=== PATIENT | male | born 1950 | race Caucasian/White ===

== ENCOUNTER 2017-11-15 11:26 | Emergency (ER) | payer MEDICARE, OTHER ==
--- NOTE | 2017-11-15 12:58 | RAD ---
CHEST 2 VIEWS: HISTORY: Cough. COMPARISON: 07/27/13. FINDINGS: Cardiac silhouette is enlarged. Pulmonary vasculature is unremarkable. Mediastinum is midline with aortic calcification. There is no confluent airspace consolidation, pneumothorax, or pleural fluid e vident. IMPRESSION: 1. Cardiomegaly. 2. Atherosclerosis. POS: [facility]
== END 2017-11-15 12:53 | disposition home or self-care (01) ==
LOC: SCSER 11:26
DX: J06.9 Acute upper respiratory infection, unspecified (principal); B34.9 Viral infection, unspecified; E78.5 Hyperlipidemia, unspecified; I25.2 Old myocardial infarction; E11.9 Type 2 diabetes mellitus without complications; I10 Essential (primary) hypertension; Z79.82 Long term (current) use of aspirin; Z79.84 Long term (current) use of oral hypoglycemic drugs; Z79.899 Other long term (current) drug therapy
CPT/HCPCS: 71046

== ENCOUNTER 2018-06-01 09:09 | Outpatient (CLI) | payer MEDICARE, OTHER ==
--- NOTE | 2018-06-01 10:27 | ULT ---
BILATERAL RENAL ULTRASOUND: HISTORY: Renal failure. Diabetes. FINDINGS: The right kidney measures 10.1 cm in length, and the left kidney measures 12.8 cm in length. No foca l mass or hydronephrosis is seen on either side. The urinary bladder is unremarkable, with a pre-voi d volume of 110 mL. IMPRESSION: No evidence of high grade obstruction. POS: [facility]
== END 2018-06-01 09:10 | disposition home or self-care (01) ==
LOC: SCSULT 09:09
PROVIDERS: ATTEND Internal Medicine Nephrology
DX: N18.3 Chronic kidney disease, stage 3 (moderate) (principal)
CPT/HCPCS: 76770

== ENCOUNTER 2018-09-02 13:30 | Emergency (ER) | payer MEDICARE, OTHER ==
[2018-09-02] MEDS ORDERED: Albuterol Sulfate 2.5 mg/0.5 ml Neb ONE ×2 (13:50)
[2018-09-02] MEDS ORDERED: Sodium Chloride For Inhalation 0.9% 3 ML NEB ONE (13:51)
[2018-09-02 14:18] LABS: #Eosinphils 0.2 thou/uL (0.0-0.7); #Lymphocytes 1.4 thou/uL (1.20-3.40); #Monocytes 0.5 thou/uL (0.11-0.59); #Neutrophils 3.1 thou/uL (1.40-6.50); %Basophils 0.6 % (0.0-1.0); %Eosinophils 4.8 % (0.0-10.0); %Lymphocytes 26.2 % (21.0-51.0); %Monocytes 9.2 % (0.0-10.0); %Neutrophils 59.3 % (42.0-75.0); Giant Platelets SLIGHT; Large Platelets SLIGHT; MDiff Complete? YES; Mean Corpuscular HGB CONC 32.5 g/dL (32.0-36.0); Mean Corpuscular Hemoglobin 30.3 pg (27.0-31.0); Mean Corpuscular Volume 93.2 fL (78.0-98.0); Mean Platelet Volume 9.3 fL (7.4-10.4); PLT Morphology Comment Appears Decreased; Platelet Count 86 thou/uL (130-400); RBC Distribution Width 12.8 % (11.5-14.5); Red Blood Cell (RBC) Count 3.32 mill/uL (4.70-6.10); White Blood Cell (WBC) Count 5.3 thou/uL (4.8-10.8)
[2018-09-02 14:21] LABS: ALT (SGPT) 16 U/L (8-55); AST (SGOT) 14 U/L (5-34); Albumin 3.4 g/dL (3.4-4.8); Alkaline Phosphatase 44 U/L (40-150); Anion Gap 14 mmol/L (10-20); BUN (Urea Nitrogen) 25 mg/dL (8.4-25.7); Bilirubin, Total 0.5 mg/dL (0.2-1.2); CK (CPK) 79 U/L (30-200); Calc. Creatinine Clearance 0 mL/min (70-130); Carbon Dioxide 18 mmol/L (23-31); Chloride 103 mmol/L (98-107); Estimated GFR-MDRD 38; Globulin 2.4 g/dL (2.4-3.5); Glucose 281 mg/dL (80-115); Lipase 24 U/L (8-78); Potassium 4.2 mmol/L (3.5-5.1); Protein, Total 5.8 g/dL (5.8-8.1); Sodium 131 mmol/L (136-145)
[2018-09-02 14:24] LABS: CKMB 0.4 ng/mL (0-6.6); Troponin I 0.014 ng/mL (< 0.028)
--- NOTE | 2018-09-02 14:53 | RAD ---
CHEST TWO VIEWS: History: 68-year-old male with history of cough. Comparison: 11-15-17 FINDINGS: Minimal increased markings in the infrahilar regions and lower lung zones. These appear to be slightl y more prominent than on the prior study and probably represent at least some component of underlying chronic change although the possibility of some very minimal acute pneumonitis is a consideration. N o new confluent lobar pneumonia. IMPRESSION: Increased markings in the infrahilar region, slightly more prominent than on prior study, possibly re presenting some mild or early atypical pneumonitis or some subsegmental atelectasis. Absent left arm. Atherosclerosis of the aorta. No new lobar pneumonia. POS: [facility]
[2018-09-02 14:54] LABS: Bilirubin Negative (Negative); Blood, Urine Negative (Negative); Clarity Slightly Cloudy (Clear); Glucose, Urine (Dipstick) 500 mg/dL (Negative); Leukocyte Negative (Negative); Nitrite Negative (Negative); Protein, Urine (Dipstick) Trace mg/dL (Neg-Trace); Urobilinogen 0.2 mg/dL (0.2-1.0); pH, Urine 5.5 (5.0-9.0)
== END 2018-09-02 15:40 | disposition home or self-care (01) ==
LOC: SCSER 13:30
DX: J10.1 Influenza due to other identified influenza virus with other respiratory manifestations (principal); E78.5 Hyperlipidemia, unspecified; I25.2 Old myocardial infarction; E11.9 Type 2 diabetes mellitus without complications; I10 Essential (primary) hypertension; Z79.899 Other long term (current) drug therapy; Z79.82 Long term (current) use of aspirin; Z79.84 Long term (current) use of oral hypoglycemic drugs
CPT/HCPCS: 71046; 80053; 81003; 82553; 83605; 83690; 84484; 85025; 87040; 87804; 93005; 96360; J7611

== ENCOUNTER 2019-01-10 10:31 | Observation (INO) | payer MEDICARE, BC ==
[2019-01-10 10:59] LABS: #Basophils 0.1 thou/uL (0.0-0.2); #Eosinphils 0.2 thou/uL (0.0-0.7); #Lymphocytes 0.8 thou/uL (1.20-3.40); #Monocytes 0.4 thou/uL (0.11-0.59); %Basophils 1.1 % (0.0-1.0); %Eosinophils 3.1 % (0.0-10.0); %Monocytes 6.7 % (0.0-10.0); %Neutrophils 77.1 % (42.0-75.0); Hemoglobin 6.2 g/dL (14.0-18.0); Mean Corpuscular HGB CONC 31.8 g/dL (32.0-36.0); Mean Corpuscular Hemoglobin 30.7 pg (27.0-31.0); Mean Corpuscular Volume 96.4 fL (78.0-98.0); Mean Platelet Volume 10.5 fL (7.4-10.4); Platelet Count 124 thou/uL (130-400); RBC Distribution Width 14.2 % (11.5-14.5); Red Blood Cell (RBC) Count 2.01 mill/uL (4.70-6.10); White Blood Cell (WBC) Count 6.5 thou/uL (4.8-10.8)
[2019-01-10 11:10] LABS: ALT (SGPT) 13 U/L (8-55); AST (SGOT) 12 U/L (5-34); Albumin 3.4 g/dL (3.4-4.8); Alkaline Phosphatase 39 U/L (40-150); Anion Gap 14 mmol/L (10-20); BUN (Urea Nitrogen) 68 mg/dL (8.4-25.7); Bilirubin, Total 0.2 mg/dL (0.2-1.2); Calc. Creatinine Clearance 0 mL/min (70-130); Calcium 8.2 mg/dL (7.8-10.44); Carbon Dioxide 15 mmol/L (23-31); Chloride 113 mmol/L (98-107); Estimated GFR-MDRD 39; Glucose 242 mg/dL (80-115); Lipase 64 U/L (8-78); Potassium 4.6 mmol/L (3.5-5.1); Protein, Total 5.4 g/dL (5.8-8.1); Sodium 137 mmol/L (136-145)
[2019-01-10 11:15] LABS: PTT 24.9 SEC (22.9-36.1); Prothrombin Time 13.3 SEC (12.0-14.7)
[2019-01-10] MEDS ORDERED: Pantoprazole 40 MG VIAL ONE ×4 (11:22→11:55)
[2019-01-10] MEDS ORDERED: Pantoprazole 80 MG, Admixture Fee 1 EACH in Sodium Chloride 0.9% 100 ML IVPB SCH (13:15)
[2019-01-10 13:45] VITALS: BMI 24.8
[2019-01-10] MEDS ORDERED: GoLYTELY 4,000 ml Bottle PO SCH (14:30)
[2019-01-10] MEDS ORDERED: Acetaminophen 325 MG TAB PO PRN (14:41)
[2019-01-10] MEDS ORDERED: Dextrose 5% in Water 1,000 ML IV PRN (15:19)
[2019-01-10] MEDS ORDERED: HumaLOG 300 UNITS/3 ML VIAL SC PRN ×2 (15:19→21:00)
[2019-01-10] MEDS ORDERED: Dextrose 50% Abboject 50 ML SYRINGE SLOW IVP PRN (15:19)
[2019-01-10] MEDS: Sodium Chloride 0.9% 1,000 ML IV SCH (16:16)
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
[2019-01-11 05:39] LABS: Anion Gap 11 mmol/L (10-20); BUN (Urea Nitrogen) 37 mg/dL (8.4-25.7); Calc. Creatinine Clearance 60 mL/min (70-130); Calcium 8.2 mg/dL (7.8-10.44); Carbon Dioxide 21 mmol/L (23-31); Chloride 113 mmol/L (98-107); Estimated GFR-MDRD 53; Glucose 130 mg/dL (80-115); Sodium 141 mmol/L (136-145)
[2019-01-11 05:58] LABS: #Basophils 0.1 thou/uL (0.0-0.2); #Eosinphils 0.2 thou/uL (0.0-0.7); #Lymphocytes 1.1 thou/uL (1.20-3.40); #Monocytes 0.4 thou/uL (0.11-0.59); %Basophils 1.3 % (0.0-1.0); %Eosinophils 3.2 % (0.0-10.0); %Lymphocytes 18.6 % (21.0-51.0); %Monocytes 7.4 % (0.0-10.0); %Neutrophils 69.5 % (42.0-75.0); Hemoglobin 8.9 g/dL (14.0-18.0); Mean Corpuscular Hemoglobin 31.4 pg (27.0-31.0); Mean Corpuscular Volume 92.5 fL (78.0-98.0); Mean Platelet Volume 8.1 fL (7.4-10.4); Platelet Count 133 thou/uL (130-400); RBC Distribution Width 13.7 % (11.5-14.5); Red Blood Cell (RBC) Count 2.83 mill/uL (4.70-6.10); White Blood Cell (WBC) Count 5.7 thou/uL (4.8-10.8)
[2019-01-11] MEDS ORDERED: Lidocaine 1% PF 5 ML VIAL ONE (13:33)
[2019-01-11] MEDS ORDERED: PROPOFOL 200 MG/20 ML VIAL ONE (13:33)
[2019-01-11] MEDS: Sodium Chloride 0.9% 1,000 ML IV SCH (14:16)
[2019-01-11] MEDS ORDERED: Promethazine HCl 25 MG/ML VIAL SLOW IVP PRN (16:59)
[2019-01-11] MEDS ORDERED: Promethazine HCl 25 MG/ML VIAL IM PRN (16:59)
[2019-01-11] MEDS ORDERED: Ondansetron HCl/PF 4 MG/2 ML Vial IVP PRN (16:59)
--- NOTE | 2019-01-11 17:20 | PDOC.PN ---
- Subjective Encounter Start Date: 01/11/19 Encounter Start Time: 17:19 Patient weakness improved. Denies chest pain, shortness of breath or palpitations. He is scheduled for EGD and colonoscopy today - Objective Resuscitation Status - Order Detail: 01/10/19 14:41 Resuscitation Status Routine Resuscitation Status: FULL: Full Resuscitation Discussed with: Patient MAR Reviewed: Yes Vital Signs & Weight: Vital Signs (12 hours) Temp Pulse Resp BP Pulse Ox 01/11/19 11:20 97.5 F L 69 16 127/59 L 95 01/11/19 07:13 99.0 F 72 16 155/70 H 96 Weight Weight 178 lb 6.4 oz I&O: 01/10/19 01/11/19 01/12/19 06:59 06:59 06:59 Intake Total 5708 Output Total 950 Balance 4758 Result Diagrams: 01/11/19 04:54 01/11/19 04:54 Additional Labs: Accuchecks 01/10/19 20:38 POC Glucose 303 H Radiology Reviewed by me: Yes Phys Exam - Physical Examination Constitutional: NAD HEENT: PERRLA, oral pharynx no lesions Neck: supple Respiratory: no wheezing, clear to auscultation bilateral Cardiovascular: RRR, no significant murmur Gastrointestinal: soft, no distention, positive bowel sounds Left upper and lower extremity amputation noted Neurological: non-focal, normal sensation Psychiatric: normal affect, A&O x 3 Skin: no rash, cap refill <2 seconds Dx/Plan (1) Acute blood loss anemia Code(s): D62 - ACUTE POSTHEMORRHAGIC ANEMIA Status: Acute (2) GI bleed Code(s): K92.2 - GASTROINTESTINAL HEMORRHAGE, UNSPECIFIED Status: Acute (3) Acute on chronic renal failure Code(s): N17.9 - ACUTE KIDNEY FAILURE, UNSPECIFIED; N18.9 - CHRONIC KIDNEY DISEASE, UNSPECIFIED Status: Acute (4) Diabetes mellitus type 2 in nonobese Code(s): E11.9 - TYPE 2 DIABETES MELLITUS WITHOUT COMPLICATIONS Status: Acute (5) HTN (hypertension) Code(s): I10 - ESSENTIAL (PRIMARY) HYPERTENSION Status: Acute - Plan cont current plan of care * Hgb stable s/p blood transfusion * Continue PPI and hold NSAIDs * PATRICIA improved * GI plannning upper and lower endoscopy today, await results * Monitor BP and other vital signs * Monitor H&H and transfuse as needed * Patient likely discharged in the next 24 hours if Hgb stable and endoscopies stable
--- NOTE | 2019-01-11 23:14 | OP ---
DATE OF PROCEDURE: 01/11/2019 PROCEDURES PERFORMED: Esophagogastroduodenoscopy with dilation of a duodenal stricture with a balloon and biopsy and control of hemorrhage, and also colonoscopy with biopsy and submucosal injection. PREOPERATIVE DIAGNOSIS: Anemia and gastrointestinal bleed. DESCRIPTION OF PROCEDURE: Informed consent was obtained from the patient. He was sedated with total intravenous anesthesia. The bite block was placed and the endoscope was advanced easily to the second portion of the duodenum and retroflexion was performed in the stomach. 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 I biopsied this. The GE junction was otherwise unremarkable. The stomach had mild erythematous gastritis in the antrum and biopsies were obtained to rule out H pylori. Retroflexed views in the stomach were unremarkable. There was a stricture in the second portion of the duodenum, in the junction between the first and second portions of the duodenum. This was too tight to pass the endoscope through. The stricture was dilated to 12 mm with a balloon dilator, after which the scope could be passed through without difficulty. There was an ulcer in the base of the stricture measuring about 9 to 10 mm. This had a visible red vessel in the base which was cauterized with a 10-B[place]hi Gold Probe with good hemostasis confirmed. The mucosa around the stricture was erythematous with loss of vascularity and biopsies were obtained from this area as well. The patient was turned around. Rectal exam was performed and was normal. The colonoscope was advanced to the terminal ileum without difficulty. The mucosa of the terminal ileum was normal. The ileocecal valve and appendiceal orifice were clearly identified. The preparation quality was good after extensive irrigation with the endoscope. There was a 1.2-cm depressed retracted ulcer in the mid transverse colon. This was biopsied and a tattoo was marked on the distal aspect of this lesion. Malignancy needs to be ruled out from this site. The remainder of the colonic mucosa was unremarkable. Retroflexed views in the rectum were normal. IMPRESSION: 1. 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 2. Mild erythematous antral gastritis, biopsied to rule out Helicobacter pylori. 3. Stricture of the second portion of the duodenum which was dilated to 12 mm with a balloon. The erythematous surrounding mucosa with loss of vascularity was biopsied. 4. A 9-to 10-mm ulcer was present in the base of the stricture with a flat red visible vessel which was cauterized with a 10-[place] Gold Probe with good hemostasis confirmed. 5. Depressed retracted ulceration in the mid transverse colon measuring 1.2 cm, biopsied and tattooed. 6. Otherwise normal ileocolonoscopy. RECOMMENDATIONS: 1. Await histopathology. 2. Proton pump inhibitor. Job ID: [id number]
[2019-01-12] MEDS: Sodium Chloride 0.9% 1,000 ML IV SCH (09:20)
[2019-01-12 10:57] LABS: #Eosinphils 0.1 thou/uL (0.0-0.7); #Lymphocytes 0.8 thou/uL (1.20-3.40); #Monocytes 0.4 thou/uL (0.11-0.59); %Eosinophils 2.7 % (0.0-10.0); %Lymphocytes 14.2 % (21.0-51.0); %Monocytes 7.4 % (0.0-10.0); %Neutrophils 75.7 % (42.0-75.0); Hemoglobin 9.3 g/dL (14.0-18.0); Mean Corpuscular HGB CONC 33.9 g/dL (32.0-36.0); Mean Corpuscular Hemoglobin 31.4 pg (27.0-31.0); Mean Corpuscular Volume 92.6 fL (78.0-98.0); Mean Platelet Volume 8.6 fL (7.4-10.4); Platelet Count 160 thou/uL (130-400); RBC Distribution Width 14.1 % (11.5-14.5); Red Blood Cell (RBC) Count 2.95 mill/uL (4.70-6.10); White Blood Cell (WBC) Count 5.3 thou/uL (4.8-10.8)
[2019-01-12 11:21] LABS: Anion Gap 10 mmol/L (10-20); BUN (Urea Nitrogen) 17 mg/dL (8.4-25.7); Calc. Creatinine Clearance 53 mL/min (70-130); Calcium 8.2 mg/dL (7.8-10.44); Carbon Dioxide 22 mmol/L (23-31); Chloride 109 mmol/L (98-107); Estimated GFR-MDRD 46; Glucose 403 mg/dL (80-115); Sodium 137 mmol/L (136-145)
[2019-01-12 11:47] VITALS: TEMP 97.9
[2019-01-12 12:15] VITALS: BP 157/71
== END 2019-01-12 13:11 | disposition home or self-care (01) ==
LOC: SCSER 10:31 → 2SW 12:56
PROVIDERS: ADMIT Internal Medicine; ATTEND Internal Medicine Gastroenterology
PROC: 0DB98ZX Excision of Duodenum, Via Natural or Artificial Opening Endoscopic, Diagnostic (ICD-10-PCS; principal; 2019-01-11)
PROC: 0DB68ZX Excision of Stomach, Via Natural or Artificial Opening Endoscopic, Diagnostic (ICD-10-PCS; 2019-01-11)
PROC: 0DB58ZX Excision of Esophagus, Via Natural or Artificial Opening Endoscopic, Diagnostic (ICD-10-PCS; 2019-01-11)
PROC: 0D798ZZ Dilation of Duodenum, Via Natural or Artificial Opening Endoscopic (ICD-10-PCS; 2019-01-11)
PROC: 0DBL8ZX Excision of Transverse Colon, Via Natural or Artificial Opening Endoscopic, Diagnostic (ICD-10-PCS; 2019-01-11)
DX: C18.4 Malignant neoplasm of transverse colon (principal); K29.81 Duodenitis with bleeding; K29.51 Unspecified chronic gastritis with bleeding; B96.81 Helicobacter pylori [H. pylori] as the cause of diseases classified elsewhere; K22.70 Barrett's esophagus without dysplasia; D62 Acute posthemorrhagic anemia; I25.10 Atherosclerotic heart disease of native coronary artery without angina pectoris; I12.9 Hypertensive chronic kidney disease with stage 1 through stage 4 chronic kidney disease, or unspecified chronic kidney disease; E11.22 Type 2 diabetes mellitus with diabetic chronic kidney disease; N18.3 Chronic kidney disease, stage 3 (moderate); N17.9 Acute kidney failure, unspecified; E78.5 Hyperlipidemia, unspecified; N40.0 Benign prostatic hyperplasia without lower urinary tract symptoms; K31.5 Obstruction of duodenum; I25.2 Old myocardial infarction; Z95.5 Presence of coronary angioplasty implant and graft; Z98.41 Cataract extraction status, right eye; Z98.42 Cataract extraction status, left eye; Z79.02 Long term (current) use of antithrombotics/antiplatelets; Z79.84 Long term (current) use of oral hypoglycemic drugs; Z79.82 Long term (current) use of aspirin; Z79.899 Other long term (current) drug therapy
CPT/HCPCS: 36430; 43239; 43245; 45380; 80048 ×2; 80053; 82274; 82962 ×3; 83690; 85025 ×3; 85610; 85730; 86850; 86900; 86901; 86920; 88305; 88312; 88313; 93005; 96365; 96366; 96376; 99291; G0378; P9016; 36415; 36416; 96361; C9113; J2001; J2704

== ENCOUNTER 2019-04-17 11:42 | Emergency (ER) | payer MEDICARE, BC ==
--- NOTE | 2019-04-17 12:07 | RAD ---
XR Chest Pa Lat STANDARD History: Cough Comparison: Radiograph from August 2018 Findings: There is interposition of colon between the right hemidiaphragm and the liver. Heart size i s enlarged. Mild atelectasis. No pneumothorax. Absence of the left upper extremity. Impression: Chronic findings. No acute intrathoracic abnormality.
[2019-04-17 12:35] LABS: #Eosinphils 0.1 thou/uL (0.0-0.7); #Lymphocytes 0.8 thou/uL (1.20-3.40); #Monocytes 0.4 thou/uL (0.11-0.59); #Neutrophils 2.6 thou/uL (1.40-6.50); %Basophils 0.4 % (0.0-1.0); %Eosinophils 1.5 % (0.0-10.0); %Lymphocytes 21.1 % (21.0-51.0); %Monocytes 10.2 % (0.0-10.0); %Neutrophils 66.8 % (42.0-75.0); Hemoglobin 9.8 g/dL (14.0-18.0); Mean Corpuscular HGB CONC 32.3 g/dL (32.0-36.0); Mean Corpuscular Hemoglobin 29.2 pg (27.0-31.0); Mean Corpuscular Volume 90.3 fL (78.0-98.0); Mean Platelet Volume 7.6 fL (7.4-10.4); Platelet Count 132 thou/uL (130-400); RBC Distribution Width 14.7 % (11.5-14.5); Red Blood Cell (RBC) Count 3.35 mill/uL (4.70-6.10); White Blood Cell (WBC) Count 3.9 thou/uL (4.8-10.8)
[2019-04-17 12:41] LABS: ALT (SGPT) 14 U/L (8-55); AST (SGOT) 14 U/L (5-34); Albumin 3.7 g/dL (3.4-4.8); Alkaline Phosphatase 57 U/L (40-150); Anion Gap 16 mmol/L (10-20); BUN (Urea Nitrogen) 32 mg/dL (8.4-25.7); Bilirubin, Total 0.2 mg/dL (0.2-1.2); Calc. Creatinine Clearance 0 mL/min (70-130); Calcium 8.5 mg/dL (7.8-10.44); Carbon Dioxide 20 mmol/L (23-31); Chloride 102 mmol/L (98-107); Estimated GFR-MDRD 30; Globulin 2.6 g/dL (2.4-3.5); Glucose 461 mg/dL (80-115); Potassium 3.8 mmol/L (3.5-5.1); Protein, Total 6.3 g/dL (5.8-8.1); Sodium 134 mmol/L (136-145)
[2019-04-17 12:58] LABS: CKMB 0.4 ng/mL (0-6.6)
== END 2019-04-17 13:25 | disposition home or self-care (01) ==
LOC: SCSER 11:42
DX: J20.9 Acute bronchitis, unspecified (principal); R79.89 Other specified abnormal findings of blood chemistry; E11.65 Type 2 diabetes mellitus with hyperglycemia
CPT/HCPCS: 71046; 80053; 82553; 83880; 84484; 85025; 93005

== ENCOUNTER 2019-07-20 10:30 | Outpatient (CLI) | payer MEDICARE, BC ==
[2019-07-20 11:08] LABS: Anion Gap 15 mmol/L (10-20); BUN (Urea Nitrogen) 31 mg/dL (8.4-25.7); Calc. Creatinine Clearance 0 mL/min (70-130); Calcium 8.6 mg/dL (7.8-10.44); Carbon Dioxide 20 mmol/L (23-31); Chloride 106 mmol/L (98-107); Estimated GFR-MDRD 40; Glucose 213 mg/dL (80-115); Potassium 4.5 mmol/L (3.5-5.1); Sodium 136 mmol/L (136-145)
--- NOTE | 2019-07-20 11:25 | RAD ---
PA AND LATERAL CHEST: Date: 07/20/19 HISTORY: Cough. COMPARISON: 04/17/19 study. FINDINGS: Heart size is enlarged. There are atherosclerotic changes of the aorta. The lungs are clear of infilt rative process. IMPRESSION: Cardiomegaly. POS: [facility]
== END 2019-07-20 10:31 | disposition home or self-care (01) ==
LOC: SCSRAD 10:30
PROVIDERS: ATTEND Family Medicine
DX: J22 Unspecified acute lower respiratory infection (principal); N18.3 Chronic kidney disease, stage 3 (moderate); I51.7 Cardiomegaly
CPT/HCPCS: 36415; 71046; 80048

== ENCOUNTER 2019-07-21 17:31 | Inpatient (IN) | payer MEDICARE, BC ==
--- NOTE | 2019-07-21 18:19 | RAD ---
XR Chest Pa Lat STANDARD History: Cough Comparison: Radiograph prior day Findings: New right lower lobe consolidation. Mild pulmonary venous congestion. No pneumothorax. Hear t size is enlarged. Obscuration medial right hemidiaphragm. Impression: New right basilar opacity concerning for infection or aspiration.
[2019-07-21] MEDS ORDERED: cefTRIAXone\\ROCEPHIN 1 GM VIAL ONE (18:26)
[2019-07-21] MEDS ORDERED: Acetaminophen 500 MG TAB ONE (18:26)
[2019-07-21 18:49] LABS: #Eosinphils 0.1 thou/uL (0.0-0.7); #Lymphocytes 0.5 thou/uL (1.20-3.40); #Monocytes 0.5 thou/uL (0.11-0.59); #Neutrophils 5.2 thou/uL (1.40-6.50); %Basophils 0.7 % (0.0-1.0); %Eosinophils 1.6 % (0.0-10.0); %Lymphocytes 7.7 % (21.0-51.0); %Monocytes 8.2 % (0.0-10.0); %Neutrophils 81.9 % (42.0-75.0); Hemoglobin 11.2 g/dL (14.0-18.0); Mean Corpuscular HGB CONC 31.5 g/dL (32.0-36.0); Mean Corpuscular Hemoglobin 29.4 pg (27.0-31.0); Mean Corpuscular Volume 93.3 fL (78.0-98.0); Mean Platelet Volume 10.7 fL (7.4-10.4); Platelet Count 133 thou/uL (130-400); RBC Distribution Width 15.9 % (11.5-14.5); White Blood Cell (WBC) Count 6.3 thou/uL (4.8-10.8)
[2019-07-21] MEDS ORDERED: Azithromycin 500 MG VIAL ONE (19:04)
[2019-07-21 19:09] LABS: ALT (SGPT) 14 U/L (8-55); AST (SGOT) 20 U/L (5-34); Albumin 4.4 g/dL (3.4-4.8); Alkaline Phosphatase 64 U/L (40-110); Anion Gap 19 mmol/L (10-20); BUN (Urea Nitrogen) 31 mg/dL (8.4-25.7); Bilirubin, Total 0.3 mg/dL (0.2-1.2); CK (CPK) 84 U/L (30-200); Calc. Creatinine Clearance 0 mL/min (70-130); Calcium 8.9 mg/dL (7.8-10.44); Carbon Dioxide 15 mmol/L (23-31); Chloride 105 mmol/L (98-107); Estimated GFR-MDRD 39; Glucose 172 mg/dL (80-115); Potassium 4.7 mmol/L (3.5-5.1); Protein, Total 7.4 g/dL (5.8-8.1); Sodium 134 mmol/L (136-145)
[2019-07-21 19:33] LABS: Bilirubin Negative (Negative); Blood, Urine Negative (Negative); Clarity Clear (Clear); Glucose, Urine (Dipstick) >=1000 mg/dL (Negative); Leukocyte Negative (Negative); Nitrite Negative (Negative); Protein, Urine (Dipstick) 100 mg/dL (Neg-Trace); Urobilinogen 0.2 mg/dL (Less than 2)
[2019-07-21 19:37] LABS: Bacteria/HPF None Seen HPF (None Seen); RBC/HPF 0-3 HPF (0-3); Squamous Epithelial 0-3 HPF (0-3); WBC/HPF 0-3 HPF (0-3)
[2019-07-21 21:33] VITALS: BMI 26.1
[2019-07-21] MEDS: Sodium Chloride 0.9% 1,000 ML IV SCH (22:00)
--- NOTE | 2019-07-22 00:18 | PDOC.EVN ---
Event Note - Event Note Event Note: [id number] HP
[2019-07-22 00:26] LABS: Troponin I 0.057 ng/mL (< 0.028)
--- NOTE | 2019-07-22 00:54 | HP ---
CHIEF COMPLAINT: Cough and fever. HISTORY OF PRESENT ILLNESS: Mr. Tovar is a 68-year-old male with past medical history of colon cancer, hyperlipidemia, myocardial infarction, diabetes type 2, hypertension, among others, presents to the emergency room with cough, fever, and shortness of breath for the last week. The patient saw his primary care physician and was given Z-Isma without any improvement. Workup in the emergency room, patient was found to have right base pneumonia. Septic workup done in the ED. The patient is on IV antibiotics. PAST MEDICAL HISTORY: 1. Colon cancer. 2. Myocardial infarction. 3. Hyperlipidemia. 4. Hypertension. 5. Diabetes mellitus, type 2. PAST SURGICAL HISTORY: 1. Colon surgery for cancer. 2. Stent placed. 3. Amputation left upper extremity. SOCIAL HISTORY: Drinks socially. No smoking history. FAMILY HISTORY: Reviewed and noncontributory. HOME MEDICATIONS: Please see home medication reconciliation form for updated medications. ALLERGIES: NO KNOWN ALLERGIES. REVIEW OF SYSTEMS: Review of 14 systems negative except what is mentioned in the history of present illness. PHYSICAL EXAMINATION: GENERAL: The patient is awake, alert, in moderate distress. VITAL SIGNS: Blood pressure 119/59, pulse 94, respiratory rate is 20, pulse oximetry 94%, temperature is 100. HEAD AND NECK: Normocephalic, atraumatic. Neck is supple. CHEST: Few right base crackles. HEART: S1, S2 regular. ABDOMEN: Soft, nontender. Bowel sounds present. NEUROLOGIC: Awake, alert, oriented x3. PSYCH: Normal mood. EXTREMITIES: No clubbing, no cyanosis. Left upper extremity amputation, left lower extremity above-knee amputation. NEUROLOGIC: Awake, alert, oriented x3. PSYCH: Normal mood. LABORATORY DATA: WBC 6.3, hemoglobin 11.2, platelets 133. Sodium 134, potassium 4.7, BUN 31, and creatinine 1.7. ASSESSMENT: 1. Community-acquired pneumonia. 2. Diabetes, type 2. 3. Hypertension. 4. Hyperlipidemia. 5. History of myocardial infarction. PLAN: 1. Admit. 2. Septic workup including cultures in the ED. 3. IV antibiotics. 4. Reconcile home medications. 5. DVT prophylaxis, SCD/low dose heparin if the patient stays more than 24 hours. 6. Expected length of stay two midnights or more. Job ID: [id number]
[2019-07-22] MEDS ORDERED: Dextrose 5% in Water 1,000 ML IV PRN (05:03)
[2019-07-22] MEDS ORDERED: Dextrose 50% Abboject 50 ML SYRINGE SLOW IVP PRN (05:03)
[2019-07-22] MEDS ORDERED: Pregabalin 50 MG CAP ONE (05:08)
[2019-07-22] MEDS: Sodium Chloride 0.9% 1,000 ML IV SCH (05:13)
[2019-07-22] MEDS ORDERED: HumaLOG 300 UNITS/3 ML VIAL ONE (05:15)
[2019-07-22] MEDS: HumaLOG 300 UNITS/3 ML VIAL SC PRN ×3 (05:23→20:36)
[2019-07-22] MEDS ORDERED: Carvedilol 6.25 MG TAB PO SCH (09:00)
[2019-07-22] MEDS: Amlodipine 10 MG TAB PO SCH (09:12)
[2019-07-22] MEDS: Aspirin 81 mg Enteric Coated Tablet PO SCH (09:12)
[2019-07-22] MEDS: Atorvastatin Calcium 40 MG TAB PO SCH (09:17)
[2019-07-22] MEDS: Pregabalin 50 MG CAP PO SCH ×3 (09:18→20:34)
[2019-07-22] MEDS: Clopidogrel Bisulfate 75 MG TAB PO SCH (09:19)
[2019-07-22] MEDS: Lisinopril 5 MG TAB PO SCH (09:23)
[2019-07-22] MEDS ORDERED: cefTRIAXone\\ROCEPHIN 1 GM in Sodium Chloride 0.9% 100 ML IVPB SCH (15:00)
[2019-07-22] MEDS ORDERED: Azithromycin 500 MG in Sodium Chloride 0.9% 250 ML 250 ML IVPB SCH (16:00)
--- NOTE | 2019-07-22 17:48 | PDOC.HOSPP ---
- Subjective Subjective: Feeling much better today. Better energy, breathing better. - Objective Vital Signs & Weight: Vital Signs (12 hours) Temp Pulse Resp BP BP Pulse Ox 07/22/19 17:12 86 20 92 L 07/22/19 11:52 99.2 F 72 20 107/65 98 07/22/19 09:23 79 147/62 H 07/22/19 09:19 147/62 H 07/22/19 09:12 79 147/62 H 07/22/19 08:00 100.3 F H 79 20 147/62 H 95 Weight Weight 187 lb 3.2 oz I&O: 07/21/19 07/22/19 07/23/19 06:59 06:59 06:59 Intake Total 1624 Output Total 525 Balance 1099 Result Diagrams: 07/21/19 18:36 07/21/19 18:36 Additional Labs: Accuchecks 07/22/19 07/22/19 07/22/19 16:10 11:23 04:54 POC Glucose 318 H 215 H 219 H 07/21/19 21:21 POC Glucose 122 H Hospitalist ROS - Medication Medications: Active Medications Generic Name Dose Route Start Last Admin Trade Name Freq PRN Reason Stop Dose Admin Albuterol/Ipratropium 3 ml 07/22/19 16:24 07/22/19 17:12 Duoneb NEB 3 ml [id number] PRN Administration SOB &/or Wheezing Amlodipine Besylate 10 mg 07/22/19 09:00 07/22/19 09:12 Norvasc PO 10 mg DAILY TRISTIN Administration Aspirin 81 mg 07/22/19 09:00 07/22/19 09:12 Ecotrin PO 81 mg DAILY TRISTIN Administration Atorvastatin Calcium 40 mg 07/22/19 09:00 07/22/19 09:17 Lipitor PO 40 mg QAM TRISTIN Administration Carvedilol 25 mg 07/22/19 09:00 07/22/19 09:19 Coreg PO 25 mg BID TRISTIN Administration Clopidogrel Bisulfate 75 mg 07/22/19 09:00 07/22/19 09:19 Plavix PO 75 mg DAILY TRISTIN Administration Azithromycin 500 mg/ Sodium 250 mls @ 250 mls/hr 07/22/19 16:00 07/22/19 17: 04 Chloride IVPB 250 mls 1600 TRISTIN Administration Ceftriaxone Sodium 1 gm/ 100 mls @ 200 mls/hr 07/22/19 15:00 07/22/19 16:07 Sodium Chloride IVPB 100 mls Q24HR TRISTIN Administration Insulin Human Lispro 0 units 07/22/19 05:03 07/22/19 16:16 Humalog SC 5 unit .MILD SLIDING SCALE PRN Administration Mild Correctional Scale Lisinopril 2.5 mg 07/22/19 09:00 07/22/19 09:23 Zestril PO 2.5 mg DAILY TRISTIN Administration Pantoprazole Sodium 40 mg 07/22/19 09:00 07/22/19 09:13 Protonix PO 40 mg DAILY TRISTIN Administration Pregabalin 100 mg 07/22/19 09:00 07/22/19 16:07 Lyrica PO 07/25/19 09:01 100 mg TID TRISTIN Administration - Exam General Appearance: NAD, awake alert Heart: RRR, no murmur, no gallops, no rubs, normal peripheral pulses Respiratory: CTAB, no wheezes, no ronchi, normal chest expansion, no tachypnea, normal percussion Respiratory - other findings: Rales left base. Gastrointestinal: soft, non-tender, non-distended, normal bowel sounds, no palpable masses, no hepatomegaly, no splenomegaly, no bruit Extremities - other findings: Amputated LUE, LLE Musculoskeletal: normal tone Psychiatric: normal affect, normal behavior, A&O x 3 Hosp A/P (1) Pneumonia Code(s): J18.9 - PNEUMONIA, UNSPECIFIED ORGANISM Status: Acute (2) Diabetes mellitus type 2 in nonobese Code(s): E11.9 - TYPE 2 DIABETES MELLITUS WITHOUT COMPLICATIONS Status: Acute (3) HTN (hypertension) Code(s): I10 - ESSENTIAL (PRIMARY) HYPERTENSION Status: Acute - Plan Doing well. Failed initial outpatient treatment. Continue Rocephin and Azithromycin. Anticipate he can discharge tomorrow with oral regimen.
[2019-07-22] MEDS ORDERED: Carvedilol 25 MG TAB PO SCH (20:30)
[2019-07-22] MEDS ORDERED: Zolpidem Tartrate 5 MG TAB PO SCH (21:00)
[2019-07-22] MEDS ORDERED: Tamsulosin HCl 0.4 MG CAP PO SCH (21:00)
[2019-07-22] MEDS ORDERED: Acetaminophen 325 MG TAB PO PRN (22:19)
[2019-07-23] MEDS ORDERED: Ibuprofen 200 MG TAB PO SCH (01:00)
[2019-07-23] MEDS: HumaLOG 300 UNITS/3 ML VIAL SC PRN ×2 (05:32→12:19)
[2019-07-23 07:51] VITALS: BP 137/74; TEMP 98
[2019-07-23] MEDS ORDERED: Carvedilol 25 MG TAB PO SCH (08:00)
[2019-07-23] MEDS: Pregabalin 50 MG CAP PO SCH (09:22)
[2019-07-23] MEDS: Amlodipine 10 MG TAB PO SCH (09:23)
[2019-07-23] MEDS: Lisinopril 5 MG TAB PO SCH (09:23)
[2019-07-23] MEDS: Clopidogrel Bisulfate 75 MG TAB PO SCH (09:23)
[2019-07-23] MEDS: Atorvastatin Calcium 40 MG TAB PO SCH (09:23)
[2019-07-23] MEDS: Aspirin 81 mg Enteric Coated Tablet PO SCH (09:23)
== END 2019-07-23 12:30 | disposition home or self-care (01) | DRG 195 ==
LOC: SCSER 17:31 → T4-B 18:32 → OBSVTOIN 07-22 13:45
PROVIDERS: ADMIT Internal Medicine; ATTEND Internal Medicine
DX: J18.9 Pneumonia, unspecified organism (principal); E78.5 Hyperlipidemia, unspecified; E11.9 Type 2 diabetes mellitus without complications; I10 Essential (primary) hypertension; I25.2 Old myocardial infarction; Z85.038 Personal history of other malignant neoplasm of large intestine
CPT/HCPCS: 36415; 36416; 71046; 80048; 80053; 81003; 81015; 82550; 82553; 83605; 83880; 84484; 85025; 87040; 87804; 93005; 94640; 96365; 96367; J0456; J0696; J3490; J7050; J7620

== ENCOUNTER 2019-12-01 14:02 | Outpatient (CLI) | payer MEDICARE, BC ==
--- NOTE | 2019-12-01 14:40 | RAD ---
2 view chest: [12/01/2019] Comparison:07/21/2019 HISTORY: Cough congestion and fever FINDINGS: There is pulmonary vascular congestion with interstitial prominence in the perihilar region s and lung bases. There is blunting of the costophrenic angles consistent with small volume pleural fluid, right greater than left. No pneumothorax. Mild pulmonary vascular prominence. IMPRESSION: Findings suggesting interstitial edema with small bilateral pleural effusions, right grea ter than left. Follow-up imaging following treatment to document resolution advised.
[2019-12-01 16:36] LABS: #Basophils 0.1 thou/uL (0.0-0.2); #Eosinphils 0.1 thou/uL (0.0-0.7); #Lymphocytes 0.8 thou/uL (1.20-3.40); #Monocytes 0.3 thou/uL (0.11-0.59); #Neutrophils 2.9 thou/uL (1.40-6.50); %Basophils 1.3 % (0.0-1.0); %Eosinophils 3.4 % (0.0-10.0); %Lymphocytes 19.8 % (21.0-51.0); %Monocytes 7.3 % (0.0-10.0); %Neutrophils 68.3 % (42.0-75.0); Hemoglobin 11.9 g/dL (14.0-18.0); Mean Corpuscular HGB CONC 32.9 g/dL (32.0-36.0); Mean Corpuscular Hemoglobin 31.7 pg (27.0-31.0); Mean Corpuscular Volume 96.3 fL (78.0-98.0); Mean Platelet Volume 10.1 fL (7.4-10.4); Platelet Count 144 thou/uL (130-400); RBC Distribution Width 14.7 % (11.5-14.5); Red Blood Cell (RBC) Count 3.74 mill/uL (4.70-6.10); White Blood Cell (WBC) Count 4.3 thou/uL (4.8-10.8)
[2019-12-01 17:09] LABS: ALT (SGPT) 12 U/L (8-55); AST (SGOT) 13 U/L (5-34); Alkaline Phosphatase 69 U/L (40-110); Anion Gap 12 mmol/L (10-20); BUN (Urea Nitrogen) 24 mg/dL (8.4-25.7); Bilirubin, Total 0.6 mg/dL (0.2-1.2); Calc. Creatinine Clearance 0 mL/min (70-130); Calcium 8.8 mg/dL (7.8-10.44); Carbon Dioxide 23 mmol/L (23-31); Chloride 107 mmol/L (98-107); Estimated GFR-MDRD 47; Globulin 2.4 g/dL (2.4-3.5); Glucose 177 mg/dL (80-115); Protein, Total 6.4 g/dL (5.8-8.1); Sodium 138 mmol/L (136-145)
== END 2019-12-01 14:03 | disposition home or self-care (01) ==
LOC: SCSRAD 14:02
PROVIDERS: ATTEND Family Medicine
DX: R79.81 Abnormal blood-gas level (principal)
CPT/HCPCS: 36415; 71046; 80053; 83880; 85025

== ENCOUNTER 2019-12-14 11:09 | Outpatient (CLI) | payer MEDICARE, BC ==
[2019-12-14 12:36] LABS: #Eosinphils 0.2 thou/uL (0.0-0.7); #Lymphocytes 1.4 thou/uL (1.20-3.40); #Monocytes 0.5 thou/uL (0.11-0.59); #Neutrophils 2.9 thou/uL (1.40-6.50); %Basophils 0.8 % (0.0-1.0); %Eosinophils 4.4 % (0.0-10.0); %Lymphocytes 27.8 % (21.0-51.0); %Monocytes 10.1 % (0.0-10.0); %Neutrophils 56.9 % (42.0-75.0); Hemoglobin 12.4 g/dL (14.0-18.0); Mean Corpuscular HGB CONC 32.1 g/dL (32.0-36.0); Mean Corpuscular Hemoglobin 31.2 pg (27.0-31.0); Mean Platelet Volume 9.9 fL (7.4-10.4); Platelet Count 143 thou/uL (130-400); RBC Distribution Width 14.1 % (11.5-14.5); Red Blood Cell (RBC) Count 3.99 mill/uL (4.70-6.10)
[2019-12-14 12:55] LABS: ALT (SGPT) 13 U/L (8-55); AST (SGOT) 15 U/L (5-34); Albumin 4.1 g/dL (3.4-4.8); Alkaline Phosphatase 57 U/L (40-110); Anion Gap 12 mmol/L (10-20); BUN (Urea Nitrogen) 19 mg/dL (8.4-25.7); Bilirubin, Total 0.4 mg/dL (0.2-1.2); Calc. Creatinine Clearance 0 mL/min (70-130); Calcium 8.7 mg/dL (7.8-10.44); Carbon Dioxide 24 mmol/L (23-31); Chloride 105 mmol/L (98-107); Estimated GFR-MDRD 45; Globulin 2.6 g/dL (2.4-3.5); Glucose 140 mg/dL (80-115); Potassium 3.3 mmol/L (3.5-5.1); Protein, Total 6.7 g/dL (5.8-8.1); Sodium 138 mmol/L (136-145)
== END 2019-12-14 11:10 | disposition home or self-care (01) ==
LOC: LABBT 11:09
PROVIDERS: ATTEND Internal Medicine Cardiovascular Disease
DX: Z01.812 Encounter for preprocedural laboratory examination (principal)
CPT/HCPCS: 80053; 85025

== ENCOUNTER 2019-12-21 05:49 | Day surgery (SDC) | payer MEDICARE, BC ==
[2019-12-14 11:35] VITALS: BMI 25.7
[2019-12-21 06:45] LABS: Anion Gap 11 mmol/L (10-20); BUN (Urea Nitrogen) 19 mg/dL (8.4-25.7); Calc. Creatinine Clearance 57 mL/min (70-130); Calcium 8.3 mg/dL (7.8-10.44); Carbon Dioxide 25 mmol/L (23-31); Chloride 106 mmol/L (98-107); Estimated GFR-MDRD 48; Glucose 154 mg/dL (80-115); Potassium 3.3 mmol/L (3.5-5.1); Sodium 139 mmol/L (136-145)
[2019-12-21] MEDS ORDERED: Diazepam 5 MG TAB ONE (06:52)
[2019-12-21] MEDS ORDERED: Fentanyl 100 MCG/2 ML VIAL ONE (07:17)
[2019-12-21] MEDS ORDERED: Midazolam HCl 2 mg/2 ml Vial ONE (07:17)
[2019-12-21] MEDS ORDERED: Iopamidol 370 76% 100 ML VIAL ONE (09:06)
== END 2019-12-21 13:17 | disposition home or self-care (01) ==
LOC: CCL 05:49
PROVIDERS: ATTEND Internal Medicine Cardiovascular Disease
PROC: 4A023N7 Measurement of Cardiac Sampling and Pressure, Left Heart, Percutaneous Approach (ICD-10-PCS; principal; 2019-12-21)
PROC: B2111ZZ Fluoroscopy of Multiple Coronary Arteries using Low Osmolar Contrast (ICD-10-PCS; 2019-12-21)
DX: I25.10 Atherosclerotic heart disease of native coronary artery without angina pectoris (principal); I13.0 Hypertensive heart and chronic kidney disease with heart failure and stage 1 through stage 4 chronic kidney disease, or unspecified chronic kidney disease; E11.22 Type 2 diabetes mellitus with diabetic chronic kidney disease; N18.3 Chronic kidney disease, stage 3 (moderate); I50.22 Chronic systolic (congestive) heart failure; I49.1 Atrial premature depolarization; I25.2 Old myocardial infarction; D50.8 Other iron deficiency anemias; E78.00 Pure hypercholesterolemia, unspecified; E78.5 Hyperlipidemia, unspecified; Z79.02 Long term (current) use of antithrombotics/antiplatelets; Z79.4 Long term (current) use of insulin; Z79.82 Long term (current) use of aspirin; Z79.899 Other long term (current) drug therapy; Z88.8 Allergy status to other drugs, medicaments and biological substances; Z95.5 Presence of coronary angioplasty implant and graft
CPT/HCPCS: 36415; 76942; 80048; 93458; 99152; C1769; J1644; J2250; J3010; Q9967

== ENCOUNTER 2020-04-20 15:00 | Outpatient (CLI) | payer MEDICARE, BC | END 2020-04-20 15:01 | disposition home or self-care (01) | LOC: SLEEPLAB 15:00 | PROVIDERS: ATTEND Family Medicine | DX: G47.33 Obstructive sleep apnea (adult) (pediatric) (principal); E66.9 Obesity, unspecified; R06.83 Snoring; F41.8 Other specified anxiety disorders; I11.0 Hypertensive heart disease with heart failure; I50.9 Heart failure, unspecified; E11.9 Type 2 diabetes mellitus without complications | CPT/HCPCS: 95801 ==

== ENCOUNTER 2021-01-25 08:36 | Outpatient (CLI) | payer MEDICARE, BC ==
[2021-01-25 17:47] LABS: SARS-CoV-2 PCR by NAA Not Detected (NotDetected)
== END 2021-01-25 08:37 | disposition home or self-care (01) ==
LOC: LABBT 08:36
PROVIDERS: ATTEND Internal Medicine Gastroenterology
DX: Z01.812 Encounter for preprocedural laboratory examination (principal); C18.4 Malignant neoplasm of transverse colon; K22.70 Barrett's esophagus without dysplasia; Z20.822 Contact with and (suspected) exposure to COVID-19
CPT/HCPCS: U0003; U0005; 87635

== ENCOUNTER 2021-01-30 05:45 | Day surgery (SDC) | payer MEDICARE, BC ==
[2021-01-30] MEDS ORDERED: PROPOFOL 200 MG/20 ML VIAL ONE (08:30)
[2021-01-30] MEDS ORDERED: ePHEDrine Sulfate 50 MG/10 ML VIAL ONE (08:35)
[2021-01-30] MEDS ORDERED: Lidocaine 1% PF 5 ML VIAL ONE (08:35)
== END 2021-01-30 09:54 | disposition home or self-care (01) ==
LOC: SDC 05:45
PROVIDERS: ATTEND Internal Medicine Gastroenterology
PROC: 0DBN8ZX Excision of Sigmoid Colon, Via Natural or Artificial Opening Endoscopic, Diagnostic (ICD-10-PCS; principal; 2021-01-30)
PROC: 0DB58ZX Excision of Esophagus, Via Natural or Artificial Opening Endoscopic, Diagnostic (ICD-10-PCS; 2021-01-30)
PROC: 0DB78ZX Excision of Stomach, Pylorus, Via Natural or Artificial Opening Endoscopic, Diagnostic (ICD-10-PCS; 2021-01-30)
DX: Z12.11 Encounter for screening for malignant neoplasm of colon (principal); D12.5 Benign neoplasm of sigmoid colon; K29.50 Unspecified chronic gastritis without bleeding; K22.70 Barrett's esophagus without dysplasia; K57.30 Diverticulosis of large intestine without perforation or abscess without bleeding; I25.10 Atherosclerotic heart disease of native coronary artery without angina pectoris; I13.0 Hypertensive heart and chronic kidney disease with heart failure and stage 1 through stage 4 chronic kidney disease, or unspecified chronic kidney disease; E11.22 Type 2 diabetes mellitus with diabetic chronic kidney disease; N18.9 Chronic kidney disease, unspecified; I50.9 Heart failure, unspecified; D63.1 Anemia in chronic kidney disease; E78.00 Pure hypercholesterolemia, unspecified; I25.2 Old myocardial infarction; G47.30 Sleep apnea, unspecified; Z85.038 Personal history of other malignant neoplasm of large intestine; Z87.891 Personal history of nicotine dependence; Z80.0 Family history of malignant neoplasm of digestive organs; Z79.02 Long term (current) use of antithrombotics/antiplatelets; Z79.4 Long term (current) use of insulin; Z79.82 Long term (current) use of aspirin; Z79.899 Other long term (current) drug therapy; Z90.49 Acquired absence of other specified parts of digestive tract; Z95.5 Presence of coronary angioplasty implant and graft; Z95.810 Presence of automatic (implantable) cardiac defibrillator
CPT/HCPCS: 36416; 88305; 93005; 93010; J2704

== ENCOUNTER 2021-09-09 13:57 | Inpatient (IN) | payer MEDICARE, BC ==
[2021-09-09] MEDS ORDERED: Labetalol HCl 100 MG/20 ML VIAL SLOW IVP PRN ×2 (17:35→20:30)
[2021-09-09] MEDS ORDERED: niCARdipine 25 MG in Sodium Chloride 0.9% 250 ML 250 ML IVPB PRN (17:35)
[2021-09-09] MEDS ORDERED: hydrALAZINE 20 MG/ML VIAL SLOW IVP PRN ×2 (17:35→20:30)
[2021-09-09] MEDS ORDERED: Ondansetron PF 4 MG/2 ML Vial IVP PRN (17:35)
[2021-09-09] MEDS ORDERED: Communication Order-Pharmacy FS PRN (17:35)
[2021-09-10 03:44] LABS: Cholesterol 161 mg/dl (< 200 Desired); HDL Cholesterol 32 mg/dL (>60 Neg Risk); Triglycerides 501 mg/dL (Less than 150)
[2021-09-10] MEDS ORDERED: Dextrose 50% Abboject 50 ML SYRINGE SLOW IVP PRN (11:17)
[2021-09-10] MEDS ORDERED: Dextrose 5% in Water 1,000 ML IV PRN (11:17)
[2021-09-10] MEDS: HumaLOG 300 UNITS/3 ML VIAL SC PRN (17:14)
[2021-09-10] MEDS: Pregabalin 50 MG CAP PO SCH (19:54)
[2021-09-10] MEDS: Tamsulosin HCl 0.4 MG CAP PO SCH (19:55)
[2021-09-11 05:29] LABS: #Eosinphils 0.1 thou/uL (0.0-0.7); #Lymphocytes 0.9 thou/uL (1.20-3.40); #Monocytes 0.3 thou/uL (0.11-0.59); #Neutrophils 2.2 thou/uL (1.40-6.50); %Basophils 0.6 % (0.0-1.0); %Eosinophils 3.7 % (0.0-10.0); %Lymphocytes 24.4 % (21.0-51.0); %Monocytes 9.1 % (0.0-10.0); %Neutrophils 62.1 % (42.0-75.0); Hemoglobin 12.7 g/dL (14.0-18.0); Mean Corpuscular HGB CONC 33.4 g/dL (32.0-36.0); Mean Corpuscular Hemoglobin 33.3 pg (27.0-31.0); Mean Corpuscular Volume 99.7 fL (78.0-98.0); Mean Platelet Volume 9.4 fL (7.4-10.4); Platelet Count 81 thou/uL (130-400); RBC Distribution Width 12.4 % (11.5-14.5); Red Blood Cell (RBC) Count 3.82 mill/uL (4.70-6.10); White Blood Cell (WBC) Count 3.5 thou/uL (4.8-10.8)
[2021-09-11 05:50] LABS: Anion Gap 12 mmol/L (10-20); BUN (Urea Nitrogen) 18 mg/dL (8.4-25.7); Calc. Creatinine Clearance 72 mL/min (70-130); Calcium 8.9 mg/dL (7.8-10.44); Carbon Dioxide 24 mmol/L (23-31); Chloride 112 mmol/L (98-107); Glucose 194 mg/dL (83-110); Potassium 3.8 mmol/L (3.5-5.1); Sodium 144 mmol/L (136-145)
[2021-09-11] MEDS: Pregabalin 50 MG CAP PO SCH ×2 (09:03→21:46)
[2021-09-11] MEDS: Atorvastatin Calcium 40 MG TAB PO SCH (09:04)
[2021-09-11] MEDS: Multivit, Therapeutic 1 TAB PO SCH (09:04)
[2021-09-11] MEDS: Ferrous Sulfate 325 MG TAB PO SCH (09:04)
[2021-09-11] MEDS: Amlodipine 5 MG TAB PO SCH (09:04)
[2021-09-11] MEDS: Carvedilol 6.25 MG TAB PO SCH ×2 (09:04→16:06)
[2021-09-11] MEDS: Artificial Tear Sol 15 ML BOT EA EYE PRN ×2 (13:36→16:06)
[2021-09-11] MEDS: HumaLOG 300 UNITS/3 ML VIAL SC PRN (17:47)
[2021-09-11] MEDS: Tamsulosin HCl 0.4 MG CAP PO SCH (21:47)
[2021-09-12] MEDS: Tamsulosin HCl 0.4 MG CAP PO SCH ×2 (05:26→20:04)
[2021-09-12 06:17] LABS: Anion Gap 12 mmol/L (10-20); BUN (Urea Nitrogen) 20 mg/dL (8.4-25.7); Calc. Creatinine Clearance 31 mL/min (70-130); Calcium 8.6 mg/dL (7.8-10.44); Carbon Dioxide 22 mmol/L (23-31); Chloride 108 mmol/L (98-107); Glucose 297 mg/dL (83-110); Magnesium 1.8 mg/dL (1.6-2.6); Sodium 138 mmol/L (136-145)
[2021-09-12] MEDS ORDERED: Fentanyl 100 MCG/2 ML VIAL ONE (06:30)
[2021-09-12] MEDS ORDERED: Midazolam HCl 2 mg/2 ml Vial ONE (06:30)
[2021-09-12] MEDS ORDERED: Lantus 1000 UNITS/10 ML VIAL SC SCH (06:37)
[2021-09-12] MEDS ORDERED: Heparin 5,000 UNITS/ML VIAL ONE (06:38)
[2021-09-12] MEDS ORDERED: Protamine Sulfate 50 MG/5 ML VIAL ONE (06:38)
[2021-09-12] MEDS ORDERED: ceFAZolin 2 GM/DEX 5% 100 ML BAG ONE (06:49)
[2021-09-12] MEDS ORDERED: Ketamine 50 MG/ML (10ML VIAL) ONE (07:04)
[2021-09-12] MEDS ORDERED: Rocuronium Bromide 10 MG/ML (10ML VIAL) ONE (07:21)
[2021-09-12] MEDS ORDERED: PROPOFOL 200 MG/20 ML VIAL ONE (07:21)
[2021-09-12] MEDS ORDERED: Glycopyrrolate 0.2 MG/ML 5 ML SYRINGE ONE (07:21)
[2021-09-12] MEDS ORDERED: Ondansetron PF 4 MG/2 ML Vial ONE (07:21)
[2021-09-12] MEDS ORDERED: Insulin Regular 300 UNITS/3 ML VIAL ONE (08:30)
[2021-09-12] MEDS ORDERED: Lidocaine 1% w/Epinephrine 1:100K 20 ML VIAL ONE (08:42)
[2021-09-12] MEDS ORDERED: Bupivacaine PF 0.5% 30 ML VIAL ONE (08:42)
[2021-09-12] MEDS ORDERED: niCARdipine 25 MG in Sodium Chloride 0.9% 250 ML 250 ML IVPB PRN (10:28)
[2021-09-12] MEDS ORDERED: Phenylephrine 40 MG in Sodium Chloride 0.9% 250 ML 250 ML IVPB PRN (10:28)
[2021-09-12] MEDS ORDERED: traMADol HCl 50 MG TAB PO PRN (10:28)
[2021-09-12] MEDS ORDERED: Ondansetron PF 4 MG/2 ML Vial IVP PRN (10:28)
[2021-09-12] MEDS ORDERED: Acetaminophen 325 MG TAB PO PRN (10:28)
[2021-09-12] MEDS ORDERED: Sodium Chloride 0.9% 1,000 ML IV SCH (10:28)
[2021-09-12] MEDS: Amlodipine 5 MG TAB PO SCH ×2 (10:50→10:53)
[2021-09-12] MEDS: Multivit, Therapeutic 1 TAB PO SCH (10:50)
[2021-09-12] MEDS: Pregabalin 50 MG CAP PO SCH ×2 (10:52→20:03)
[2021-09-12] MEDS: Atorvastatin Calcium 40 MG TAB PO SCH (10:52)
[2021-09-12] MEDS: Ferrous Sulfate 325 MG TAB PO SCH (10:52)
[2021-09-12] MEDS: Carvedilol 6.25 MG TAB PO SCH ×2 (11:21→16:05)
[2021-09-12] MEDS ORDERED: Magnesium 2 GM/50 ML 2 GM in Premix Bag 1 BAG IVPB SCH (14:00)
[2021-09-12 14:36] LABS: ALT (SGPT) 16 U/L (8-55); AST (SGOT) 15 U/L (5-34); Alkaline Phosphatase 51 U/L (40-110); Anion Gap 11 mmol/L (10-20); BUN (Urea Nitrogen) 18 mg/dL (8.4-25.7); Bilirubin, Total 0.3 mg/dL (0.2-1.2); Calc. Creatinine Clearance 30 mL/min (70-130); Calcium 7.8 mg/dL (7.8-10.44); Carbon Dioxide 21 mmol/L (23-31); Chloride 105 mmol/L (98-107); Globulin 2.2 g/dL (2.4-3.5); Glucose 417 mg/dL (83-110); Magnesium 1.7 mg/dL (1.6-2.6); Potassium 4.3 mmol/L (3.5-5.1); Protein, Total 5.2 g/dL (5.8-8.1); Sodium 133 mmol/L (136-145)
[2021-09-12] MEDS: ceFAZolin Sodium/D5W 2 GM in Premix Bag 1 BAG IVPB SCH (14:54)
[2021-09-12] MEDS: HumaLOG 300 UNITS/3 ML VIAL SC PRN ×2 (15:08→20:06)
[2021-09-12] MEDS ORDERED: Lantus 1000 UNITS/10 ML VIAL SC STA (16:21)
[2021-09-12] MEDS: Carvedilol 25 MG TAB PO SCH (17:29)
[2021-09-12] MEDS: Lantus 1000 UNITS/10 ML VIAL SC SCH (20:11)
[2021-09-12] MEDS: hydrALAZINE 20 MG/ML VIAL SLOW IVP PRN (21:19)
[2021-09-13] MEDS: ceFAZolin Sodium/D5W 2 GM in Premix Bag 1 BAG IVPB SCH ×2 (00:07→08:39)
[2021-09-13] MEDS: hydrALAZINE 20 MG/ML VIAL SLOW IVP PRN (03:41)
[2021-09-13] MEDS: Tamsulosin HCl 0.4 MG CAP PO SCH (04:42)
[2021-09-13] MEDS: HumaLOG 300 UNITS/3 ML VIAL SC PRN ×2 (04:48→11:20)
[2021-09-13 04:56] VITALS: BMI 294535.9
[2021-09-13] MEDS ORDERED: Furosemide 40 MG/4 ML VIAL SLOW IVP SCH (07:30)
[2021-09-13] MEDS ORDERED: Potassium Chloride 20 MEQ TAB PO SCH ×2 (07:30→08:00)
[2021-09-13] MEDS ORDERED: Lantus 1000 UNITS/10 ML VIAL SC STA (07:30)
[2021-09-13] MEDS: Multivit, Therapeutic 1 TAB PO SCH (08:40)
[2021-09-13] MEDS: Atorvastatin Calcium 40 MG TAB PO SCH (08:40)
[2021-09-13] MEDS: Pregabalin 50 MG CAP PO SCH (08:41)
[2021-09-13] MEDS: Carvedilol 25 MG TAB PO SCH (08:42)
[2021-09-13] MEDS: Ferrous Sulfate 325 MG TAB PO SCH (08:46)
[2021-09-13] MEDS ORDERED: Sacubitril 49 MG/Valsartan 51 MG TABLET PO SCH (09:00)
[2021-09-13] MEDS ORDERED: Clopidogrel Bisulfate 75 MG TAB PO SCH (09:00)
[2021-09-13] MEDS ORDERED: Aspirin Chewable 81 MG TAB PO SCH (09:00)
[2021-09-13] MEDS: Lantus 1000 UNITS/10 ML VIAL SC SCH (09:14)
[2021-09-13 13:01] VITALS: TEMP 98.4
[2021-09-13] MEDS ORDERED: Lantus 1000 UNITS/10 ML VIAL SC SCH (14:57)
[2021-09-13 15:41] VITALS: BP 130/81
[2021-09-14] MEDS ORDERED: Torsemide 20 MG TAB PO SCH (09:00)
== END 2021-09-13 15:28 | disposition home health service (06) | DRG 37 ==
LOC: ERS 13:57 → CCU 15:05 → NEURO 09-10 22:03 → CCU 09-12 06:19
PROVIDERS: ADMIT Internal Medicine; ATTEND Internal Medicine
PROC: 03CL0ZZ Extirpation of Matter from Left Internal Carotid Artery, Open Approach (ICD-10-PCS; principal; 2021-09-12)
PROC: 03UL0KZ Supplement Left Internal Carotid Artery with Nonautologous Tissue Substitute, Open Approach (ICD-10-PCS; 2021-09-12)
DX: I63.00 Cerebral infarction due to thrombosis of unspecified precerebral artery (principal); I60.9 Nontraumatic subarachnoid hemorrhage, unspecified; I51.81 Takotsubo syndrome; I13.0 Hypertensive heart and chronic kidney disease with heart failure and stage 1 through stage 4 chronic kidney disease, or unspecified chronic kidney disease; I50.22 Chronic systolic (congestive) heart failure; I47.2 Ventricular tachycardia; I65.22 Occlusion and stenosis of left carotid artery; Z20.822 Contact with and (suspected) exposure to COVID-19; R47.81 Slurred speech; E78.5 Hyperlipidemia, unspecified; E11.65 Type 2 diabetes mellitus with hyperglycemia; E11.51 Type 2 diabetes mellitus with diabetic peripheral angiopathy without gangrene; E11.22 Type 2 diabetes mellitus with diabetic chronic kidney disease; N18.30 Chronic kidney disease, stage 3 unspecified; D63.1 Anemia in chronic kidney disease; Z79.01 Long term (current) use of anticoagulants; Z79.82 Long term (current) use of aspirin; Z79.4 Long term (current) use of insulin; Z79.899 Other long term (current) drug therapy; I25.2 Old myocardial infarction; Z89.512 Acquired absence of left leg below knee; Z92.82 Status post administration of tPA (rtPA) in a different facility within the last 24 hours prior to admission to current facility; Z82.49 Family history of ischemic heart disease and other diseases of the circulatory system; Z86.73 Personal history of transient ischemic attack (TIA), and cerebral infarction without residual deficits; Z85.038 Personal history of other malignant neoplasm of large intestine; Z95.5 Presence of coronary angioplasty implant and graft; Z89.212 Acquired absence of left upper limb below elbow
CPT/HCPCS: 36415; 36416; 70450; 70496; 70498; 70551; 80048; 80053; 80061; 81003; 82550; 82553; 83735; 84484; 85025; 85610; 85730; 93005; 93010; 93306; 95712; 95819; 95957; C1768; J0360; J1642; J1644; J1815; J1940; J2250; J2405; J2704; J2720; J3010; J3475; S0020; U0002

== ENCOUNTER 2023-01-27 12:00 | Inpatient (IN) | payer MEDICARE, BC ==
[2023-01-27 13:02] LABS: INR-International Normal Ratio 0.9; Prothrombin Time 10.2 sec (9.5-12.1)
[2023-01-27 13:04] LABS: Hemoglobin 12.3 g/dL (13.5-17.5); Mean Corpuscular HGB CONC 32.9 g/dL (32.0-36.0); Mean Corpuscular Hemoglobin 30.6 pg (27.0-33.0); Platelet Count 122 10x3/uL (150-450); RBC Distribution Width 13.2 % (11.5-14.5); Red Blood Cell (RBC) Count 4.02 10x6/uL (4.32-5.72)
[2023-01-27 13:07] LABS: ALT (SGPT) 15 U/L (8-55); AST (SGOT) 16 U/L (5-34); Albumin 4.2 g/dL (3.4-4.8); Alkaline Phosphatase 51 U/L (40-110); Anion Gap 13 mmol/L (10-20); BUN (Urea Nitrogen) 26 mg/dL (8.4-25.7); Bilirubin, Total 0.5 mg/dL (0.2-1.2); Calc. Creatinine Clearance 0 mL/min (70-130); Calcium 8.3 mg/dL (7.8-10.44); Carbon Dioxide 23 mmol/L (23-31); Chloride 98 mmol/L (98-107); Estimated GFR 55; Glucose 119 mg/dL (83-110); Potassium 4.8 mmol/L (3.5-5.1); Protein, Total 6.2 g/dL (5.8-8.1); Sodium 129 mmol/L (136-145)
[2023-02-02 12:24] VITALS: BMI 26.7
[2023-02-03] MEDS ORDERED: Heparin 10,000 UNITS/ 10 ML VIAL ONE ×2 (06:44→06:54)
[2023-02-03] MEDS ORDERED: Protamine Sulfate 50 MG/5 ML VIAL ONE (06:44)
[2023-02-03] MEDS ORDERED: CEFAZOLIN 1 GM VIAL ONE (06:44)
[2023-02-03] MEDS ORDERED: fentaNYL 50 mcg/mL 1 mL Vial ONE (06:52)
[2023-02-03] MEDS ORDERED: Norepinephrine 4 MG/4 ML VIAL ONE (06:53)
[2023-02-03] MEDS ORDERED: Phenylephrine 10 MG/ML VIAL ONE (06:53)
[2023-02-03] MEDS ORDERED: PROPOFOL 200 MG/20 ML VIAL ONE (07:36)
[2023-02-03] MEDS ORDERED: Dexamethasone 20 MG/5 ML VIAL ONE (07:36)
[2023-02-03] MEDS ORDERED: Lidocaine 1% PF 5 ML VIAL ONE (07:36)
[2023-02-03] MEDS ORDERED: Ondansetron PF 4 MG/2 ML Vial ONE (07:36)
[2023-02-03] MEDS ORDERED: Rocuronium Bromide 10 MG/ML (10ML VIAL) ONE (07:36)
== END 2023-02-03 14:50 | disposition home or self-care (01) | DRG 274 ==
LOC: SURG A 02-03 05:56
PROVIDERS: ADMIT Internal Medicine Cardiovascular Disease; ATTEND Internal Medicine Cardiovascular Disease
PROC: 02L73DK Occlusion of Left Atrial Appendage with Intraluminal Device, Percutaneous Approach (ICD-10-PCS; principal; 2023-02-03)
PROC: B24BZZ4 Ultrasonography of Heart with Aorta, Transesophageal (ICD-10-PCS; 2023-02-03)
DX: I48.0 Paroxysmal atrial fibrillation (principal); Z00.6 Encounter for examination for normal comparison and control in clinical research program; Z95.5 Presence of coronary angioplasty implant and graft; Z90.49 Acquired absence of other specified parts of digestive tract; Z98.42 Cataract extraction status, left eye; Z98.41 Cataract extraction status, right eye; Z89.612 Acquired absence of left leg above knee; Z89.202 Acquired absence of left upper limb, unspecified level; Z79.82 Long term (current) use of aspirin; Z79.4 Long term (current) use of insulin; Z79.02 Long term (current) use of antithrombotics/antiplatelets
CPT/HCPCS: 33340; 80053; 85027; 85610; 86850; 86900; 86901; 93306; 93312; C1759; C1760; C1769; C1894; J0690; J1100; J1644; J2370; J2405; J2704; J2720; J3010

== ENCOUNTER 2023-11-24 14:09 | Emergency (ER) | payer MEDICARE ==
[2023-11-24 16:10] LABS: #Eosinphils 0.1 thou/uL (0.0-0.7); #Monocytes 0.5 thou/uL (0.11-0.59); #Neutrophils 5.6 thou/uL (1.40-6.50); %Basophils 0.1 % (0.0-1.0); %Eosinophils 1.3 % (0.0-10.0); %Lymphocytes 9.8 % (21.0-51.0); %Monocytes 6.5 % (0.0-10.0); %Neutrophils 81.6 % (42.0-75.0); Hematocrit 33.7 % (42.0-52.0); Hemoglobin 11.4 g/dL (14.0-18.0); Mean Corpuscular HGB CONC 33.8 g/dL (32.0-36.0); Mean Corpuscular Hemoglobin 31.8 pg (27.0-31.0); Mean Corpuscular Volume 93.9 fl (78.0-98.0); Mean Platelet Volume 11.1 fL (7.4-10.4); Platelet Count 112 10x3/uL (130-400); RBC Distribution Width 13.1 % (11.5-14.5); Red Blood Cell (RBC) Count 3.59 mill/uL (4.70-6.10); White Blood Cell (WBC) Count 6.9 10x3/uL (4.8-10.8)
[2023-11-24 16:30] LABS: ALT (SGPT) 10 U/L (8-55); AST (SGOT) 11 U/L (5-34); Albumin 3.7 g/dL (3.4-4.8); Alkaline Phosphatase 55 U/L (40-110); Anion Gap 12 mmol/L (10-20); BUN (Urea Nitrogen) 27 mg/dL (8.4-25.7); Bilirubin, Total 0.9 mg/dL (0.2-1.2); Calc. Creatinine Clearance 0 mL/min (70-130); Calcium 8.3 mg/dL (7.8-10.44); Carbon Dioxide 20 mmol/L (23-31); Chloride 93 mmol/L (98-107); Estimated GFR 49; Globulin 2.3 g/dL (2.4-3.5); Glucose 179 mg/dL (83-110); Potassium 4.8 mmol/L (3.5-5.1); Sodium 120 mmol/L (136-145)
== END 2023-11-24 16:57 | disposition home or self-care (01) ==
LOC: ERS 14:09
DX: E87.1 Hypo-osmolality and hyponatremia (principal); I13.0 Hypertensive heart and chronic kidney disease with heart failure and stage 1 through stage 4 chronic kidney disease, or unspecified chronic kidney disease; E11.22 Type 2 diabetes mellitus with diabetic chronic kidney disease; N18.9 Chronic kidney disease, unspecified; I50.9 Heart failure, unspecified; R63.5 Abnormal weight gain; E78.5 Hyperlipidemia, unspecified; I25.2 Old myocardial infarction; G47.33 Obstructive sleep apnea (adult) (pediatric); E87.70 Fluid overload, unspecified; C18.9 Malignant neoplasm of colon, unspecified; F17.220 Nicotine dependence, chewing tobacco, uncomplicated; Z55.6 Problems related to health literacy; Z79.4 Long term (current) use of insulin; Z79.899 Other long term (current) drug therapy
CPT/HCPCS: 36415; 71046; 80053; 83880; 85025; 93005

== ENCOUNTER 2023-11-30 16:19 | Inpatient (IN) | payer MEDICARE ==
[2023-11-30] MEDS ORDERED: Metoprolol Tartrate 5 MG (5 mL) VIAL ONE (16:33)
[2023-11-30] MEDS ORDERED: Etomidate 40 MG (20 mL) VIAL ONE (16:40)
[2023-11-30 16:43] LABS: #Eosinphils 0.1 thou/uL (0.0-0.7); #Monocytes 0.6 thou/uL (0.11-0.59); #Neutrophils 5.5 thou/uL (1.40-6.50); %Basophils 0.1 % (0.0-1.0); %Eosinophils 0.9 % (0.0-10.0); %Monocytes 9.3 % (0.0-10.0); %Neutrophils 80.1 % (42.0-75.0); Hemoglobin 10.9 g/dL (14.0-18.0); Mean Corpuscular HGB CONC 34.1 g/dL (32.0-36.0); Mean Corpuscular Hemoglobin 32.2 pg (27.0-31.0); Mean Corpuscular Volume 94.7 fl (78.0-98.0); Mean Platelet Volume 10.8 fL (7.4-10.4); Platelet Count 151 10x3/uL (130-400); RBC Distribution Width 13.5 % (11.5-14.5); Red Blood Cell (RBC) Count 3.38 mill/uL (4.70-6.10); White Blood Cell (WBC) Count 6.8 10x3/uL (4.8-10.8)
[2023-11-30 17:06] LABS: ALT (SGPT) 20 U/L (8-55); AST (SGOT) 18 U/L (5-34); Albumin 3.3 g/dL (3.4-4.8); Alkaline Phosphatase 67 U/L (40-110); Anion Gap 17 mmol/L (10-20); BUN (Urea Nitrogen) 74 mg/dL (8.4-25.7); Bilirubin, Total 0.5 mg/dL (0.2-1.2); Calc. Creatinine Clearance 0 mL/min (70-130); Calcium 8.5 mg/dL (7.8-10.44); Carbon Dioxide 15 mmol/L (23-31); Chloride 96 mmol/L (98-107); Estimated GFR 12; Globulin 2.8 g/dL (2.4-3.5); Glucose 203 mg/dL (83-110); Potassium 5.9 mmol/L (3.5-5.1); Protein, Total 6.1 g/dL (5.8-8.1); Sodium 122 mmol/L (136-145)
[2023-11-30 17:10] LABS: Troponin I 0.041 ng/mL (< 0.028)
[2023-11-30 17:26] LABS: PTT 34.4 sec (22.9-36.1); Prothrombin Time 13.6 sec (12.0-14.7)
[2023-11-30 17:27] LABS: Magnesium 1.9 mg/dL (1.6-2.6)
[2023-11-30] MEDS ORDERED: CALCIUM GLUC 1 GM (50 ML) BAG ONE (18:19)
[2023-11-30] MEDS ORDERED: Acetaminophen 325 MG TAB PO PRN (19:23)
[2023-11-30] MEDS ORDERED: Acetaminophen 650 MG Suppository PR PRN (19:23)
[2023-11-30] MEDS ORDERED: Ondansetron PF 4 MG/2 ML Vial IVP PRN (19:23)
[2023-11-30] MEDS ORDERED: Senokot S 8.6-50 MG TAB PO PRN (19:23)
[2023-11-30] MEDS ORDERED: Bisacodyl 5 MG TAB PO PRN (19:23)
[2023-11-30] MEDS ORDERED: Ondansetron ODT 4 MG TAB PO PRN (19:23)
[2023-11-30] MEDS ORDERED: Insulin Regular 300 UNITS/3 ML VIAL ONE (19:42)
[2023-11-30] MEDS ORDERED: Sodium Chloride 0.9% 1,000 ML IV SCH (19:45)
[2023-11-30] MEDS ORDERED: Ipratropium/Albuterol 3 ML NEB NEB PRN (19:49)
[2023-11-30] MEDS ORDERED: Sodium Polystyrene Sulfonate 15 GM (60 mL) BOT ONE (19:57)
[2023-11-30] MEDS ORDERED: Lactulose 20 GM (30 mL) UDCUP ONE ×2 (19:57→20:28)
[2023-11-30 20:59] LABS: Hemoglobin A1c 6.6 % (4.0-6.0)
[2023-11-30 21:09] LABS: Anion Gap 17 mmol/L (10-20); BUN (Urea Nitrogen) 66 mg/dL (8.4-25.7); Calc. Creatinine Clearance 0 mL/min (70-130); Calcium 7.9 mg/dL (7.8-10.44); Carbon Dioxide 12 mmol/L (23-31); Chloride 92 mmol/L (98-107); Estimated GFR 12; Potassium 4.8 mmol/L (3.5-5.1)
[2023-11-30 21:14] LABS: Troponin I 0.042 ng/mL (< 0.028)
[2023-11-30 21:23] LABS: Critical Call Chemistry NUR.MD20 @2122; Sodium 116 mmol/L (136-145)
[2023-11-30] MEDS ORDERED: Furosemide 40 MG (4 mL) VIAL SLOW IVP SCH (21:30)
[2023-11-30] MEDS ORDERED: Glucagon 1 MG/ML KIT IM PRN (22:59)
[2023-11-30] MEDS ORDERED: Dextrose 50% Abboject 50 ML SYRINGE SLOW IVP PRN (22:59)
[2023-11-30] MEDS ORDERED: Dextrose 5% in Water 1,000 ML IV PRN (22:59)
[2023-11-30] MEDS: Heparin 5,000 UNITS/ML VIAL SC SCH (23:51)
[2023-11-30] MEDS: Sodium Chloride 0.9% 1,000 ML IV SCH (23:51)
[2023-11-30] MEDS: Famotidine 20 MG TAB PO SCH (23:51)
[2023-12-01 02:42] LABS: #Eosinphils 0.1 thou/uL (0.0-0.7); #Monocytes 0.6 thou/uL (0.11-0.59); #Neutrophils 3.9 thou/uL (1.40-6.50); %Basophils 0.2 % (0.0-1.0); %Eosinophils 1.9 % (0.0-10.0); %Lymphocytes 13.1 % (21.0-51.0); %Neutrophils 72.1 % (42.0-75.0); Hematocrit 29.2 % (42.0-52.0); Hemoglobin 9.8 g/dL (14.0-18.0); Mean Corpuscular HGB CONC 33.6 g/dL (32.0-36.0); Mean Corpuscular Hemoglobin 32.1 pg (27.0-31.0); Mean Corpuscular Volume 95.7 fl (78.0-98.0); Mean Platelet Volume 10.4 fL (7.4-10.4); Platelet Count 149 10x3/uL (130-400); RBC Distribution Width 13.7 % (11.5-14.5); Red Blood Cell (RBC) Count 3.05 mill/uL (4.70-6.10); White Blood Cell (WBC) Count 5.3 10x3/uL (4.8-10.8)
[2023-12-01 02:51] LABS: Base Excess -12.1 mEq/L (-2.0 to +3.0); Calcium, Ionized (venous) 1.08 mmol/L (1.16-1.32); Chloride (VBG) 100 mmol/L (98-106); Hematocrit-VBG 31 % (42.0-52.0); Hemoglobin (Hb) 10.7 g/dL (12.6-17.4); Potassium (VBG) 4.07 mmol/L (3.70-5.30); Sodium 125 mmol/L (133-146); pH (venous) 7.259 (7.32-7.43)
[2023-12-01 03:04] LABS: Lactic Acid 0.5 mmol/L (0.5-2.2)
[2023-12-01 03:10] LABS: ALT (SGPT) 19 U/L (8-55); AST (SGOT) 17 U/L (5-34); Albumin 3.1 g/dL (3.4-4.8); Alkaline Phosphatase 61 U/L (40-110); Anion Gap 15 mmol/L (10-20); BUN (Urea Nitrogen) 70 mg/dL (8.4-25.7); Bilirubin, Total 0.4 mg/dL (0.2-1.2); Calc. Creatinine Clearance 0 mL/min (70-130); Carbon Dioxide 14 mmol/L (23-31); Chloride 102 mmol/L (98-107); Estimated GFR 12; Globulin 2.3 g/dL (2.4-3.5); Glucose 133 mg/dL (83-110); Potassium 4.1 mmol/L (3.5-5.1); Protein, Total 5.4 g/dL (5.8-8.1); Sodium 127 mmol/L (136-145)
[2023-12-01 03:20] LABS: Magnesium 1.8 mg/dL (1.6-2.6)
[2023-12-01] MEDS: Sodium Bicarbonate 100 MEQ in Sterile Water 1,000 ML IV SCH (03:28)
[2023-12-01] MEDS: Sodium Bicarb 50 mEq/50 ML VIAL IVP SCH (03:30)
[2023-12-01 04:21] VITALS: BMI 29.4
[2023-12-01] MEDS ORDERED: Sodium Bicarbonate 100 MEQ in Sterile Water 1,000 ML IV SCH ×2 (07:58→09:41)
[2023-12-01 09:12] LABS: Anion Gap 17 mmol/L (10-20); BUN (Urea Nitrogen) 69 mg/dL (8.4-25.7); Calc. Creatinine Clearance 19 mL/min (70-130); Calcium 8.1 mg/dL (7.8-10.44); Carbon Dioxide 17 mmol/L (23-31); Chloride 100 mmol/L (98-107); Estimated GFR 12; Glucose 80 mg/dL (83-110); Potassium 3.6 mmol/L (3.5-5.1); Sodium 130 mmol/L (136-145)
[2023-12-01] MEDS: Potassium Chloride 20 MEQ TAB PO SCH (12:24)
[2023-12-01 14:02] LABS: Bacteria/HPF None Seen HPF (None Seen); Bilirubin Negative (Negative); Blood, Urine Negative (Negative); CAUTI Indications for Culture Dysuria,urgency,freq; Clarity Clear (Clear); Glucose, Urine (Dipstick) 150 mg/dL (Negative); Ketone, Urine Negative (Negative); Leukocyte Negative Leu/uL (Negative); Nitrite Negative (Negative); Protein, Urine (Dipstick) Negative (Neg-Trace); RBC/HPF 0-3 HPF (0-3); Specific Gravity, Urine 1.011 (1.002-1.036); Squamous Epithelial None Seen HPF (0-3); Urobilinogen Normal mg/dL (Less than 2); WBC/HPF 0-3 HPF (0-3)
[2023-12-01 14:04] LABS: Urine Culture Reflex No No
[2023-12-01] MEDS: HumaLOG 300 UNITS/3 ML VIAL SC PRN (17:26)
[2023-12-01] MEDS: Albumin 25% 25 GM (100 mL) BOT IVPB SCH (23:53)
[2023-12-02 05:04] LABS: Anion Gap 15 mmol/L (10-20); BUN (Urea Nitrogen) 72 mg/dL (8.4-25.7); Calc. Creatinine Clearance 19 mL/min (70-130); Calcium 8.1 mg/dL (7.8-10.44); Carbon Dioxide 19 mmol/L (23-31); Chloride 103 mmol/L (98-107); Estimated GFR 12; Glucose 72 mg/dL (83-110); Potassium 3.6 mmol/L (3.5-5.1); Sodium 133 mmol/L (136-145)
[2023-12-02 05:23] LABS: #Eosinphils 0.1 thou/uL (0.0-0.7); #Monocytes 0.5 thou/uL (0.11-0.59); #Neutrophils 2.6 thou/uL (1.40-6.50); %Basophils 0.5 % (0.0-1.0); %Eosinophils 2.7 % (0.0-10.0); %Lymphocytes 19.4 % (21.0-51.0); %Monocytes 13.2 % (0.0-10.0); %Neutrophils 63.7 % (42.0-75.0); Hematocrit 26.6 % (42.0-52.0); Hemoglobin 8.9 g/dL (14.0-18.0); Mean Corpuscular HGB CONC 33.5 g/dL (32.0-36.0); Mean Corpuscular Hemoglobin 31.9 pg (27.0-31.0); Mean Corpuscular Volume 95.3 fl (78.0-98.0); Mean Platelet Volume 11.2 fL (7.4-10.4); Platelet Count 156 10x3/uL (130-400); RBC Distribution Width 13.8 % (11.5-14.5); Red Blood Cell (RBC) Count 2.79 mill/uL (4.70-6.10)
[2023-12-02] MEDS: Digoxin 0.5 MG/2 ML AMP SLOW IVP SCH ×2 (06:33→09:13)
[2023-12-02] MEDS: Sodium Bicarb 50 MEQ/50 ML Abboject 8.4% SYRINGE IVP SCH (07:24)
[2023-12-02] MEDS: dilTIAZem 125 MG, Admixture Fee 1 EACH in Sodium Chloride 0.9% 100 ML IVPB SCH (07:46)
[2023-12-02] MEDS: Amiodarone 450 MG in Dextrose 5% in Water 250 ML IVPB SCH (10:08)
[2023-12-02 16:14] LABS: Actual Bicarbonate (HCO3v) 13.8 mEq/L (22-28)
[2023-12-02] MEDS: HumaLOG 300 UNITS/3 ML VIAL SC PRN (20:43)
[2023-12-03 04:52] LABS: #Eosinphils 0.2 thou/uL (0.0-0.7); #Monocytes 0.6 thou/uL (0.11-0.59); #Neutrophils 4.2 thou/uL (1.40-6.50); %Basophils 0.5 % (0.0-1.0); %Eosinophils 2.8 % (0.0-10.0); %Lymphocytes 11.7 % (21.0-51.0); %Monocytes 10.8 % (0.0-10.0); %Neutrophils 73.5 % (42.0-75.0); Hemoglobin 9.3 g/dL (14.0-18.0); Mean Corpuscular HGB CONC 33.2 g/dL (32.0-36.0); Mean Corpuscular Hemoglobin 31.7 pg (27.0-31.0); Mean Corpuscular Volume 95.6 fl (78.0-98.0); Mean Platelet Volume 10.5 fL (7.4-10.4); Platelet Count 196 10x3/uL (130-400); RBC Distribution Width 13.8 % (11.5-14.5); Red Blood Cell (RBC) Count 2.93 mill/uL (4.70-6.10); White Blood Cell (WBC) Count 5.7 10x3/uL (4.8-10.8)
[2023-12-03 05:45] LABS: Anion Gap 15 mmol/L (10-20); BUN (Urea Nitrogen) 77 mg/dL (8.4-25.7); Calc. Creatinine Clearance 20 mL/min (70-130); Calcium 8.3 mg/dL (7.8-10.44); Carbon Dioxide 20 mmol/L (23-31); Chloride 102 mmol/L (98-107); Estimated GFR 13; Glucose 128 mg/dL (83-110); Magnesium 1.9 mg/dL (1.6-2.6); Potassium 3.9 mmol/L (3.5-5.1); Sodium 133 mmol/L (136-145)
[2023-12-03] MEDS: Furosemide 40 MG (4 mL) VIAL SLOW IVP SCH (09:27)
[2023-12-03] MEDS ORDERED: Heparin 10,000 UNITS/ 10 ML VIAL ONE (11:49)
[2023-12-03] MEDS: Albumin 25% 25 GM (100 mL) BOT IVPB SCH (12:11)
[2023-12-03] MEDS: Carvedilol 25 MG TAB PO SCH ×2 (14:42→21:31)
[2023-12-03] MEDS: Pregabalin 50 MG CAP PO SCH ×2 (16:23→21:30)
[2023-12-03] MEDS: Amiodarone 200 MG TAB PO SCH (21:31)
[2023-12-04 04:25] LABS: #Eosinphils 0.2 thou/uL (0.0-0.7); #Monocytes 0.4 thou/uL (0.11-0.59); #Neutrophils 2.9 thou/uL (1.40-6.50); %Basophils 0.5 % (0.0-1.0); %Eosinophils 3.7 % (0.0-10.0); %Monocytes 10.8 % (0.0-10.0); Hematocrit 26.1 % (42.0-52.0); Hemoglobin 8.6 g/dL (14.0-18.0); Mean Corpuscular Hemoglobin 31.6 pg (27.0-31.0); Mean Platelet Volume 10.5 fL (7.4-10.4); Platelet Count 173 10x3/uL (130-400); RBC Distribution Width 13.9 % (11.5-14.5); Red Blood Cell (RBC) Count 2.72 mill/uL (4.70-6.10); White Blood Cell (WBC) Count 4.1 10x3/uL (4.8-10.8)
[2023-12-04 04:54] LABS: Anion Gap 15 mmol/L (10-20); BUN (Urea Nitrogen) 78 mg/dL (8.4-25.7); Calc. Creatinine Clearance 18 mL/min (70-130); Calcium 8.4 mg/dL (7.8-10.44); Carbon Dioxide 23 mmol/L (23-31); Chloride 104 mmol/L (98-107); Estimated GFR 12; Glucose 121 mg/dL (83-110); Potassium 3.7 mmol/L (3.5-5.1); Sodium 138 mmol/L (136-145)
[2023-12-04] MEDS: Tamsulosin HCl 0.4 MG CAP PO SCH (10:31)
[2023-12-04] MEDS: Pregabalin 50 MG CAP PO SCH ×2 (18:17→22:56)
[2023-12-05 04:26] LABS: #Eosinphils 0.1 thou/uL (0.0-0.7); #Monocytes 0.5 thou/uL (0.11-0.59); #Neutrophils 3.6 thou/uL (1.40-6.50); %Basophils 0.2 % (0.0-1.0); %Eosinophils 2.6 % (0.0-10.0); %Lymphocytes 13.2 % (21.0-51.0); %Monocytes 9.5 % (0.0-10.0); %Neutrophils 73.9 % (42.0-75.0); Hematocrit 26.1 % (42.0-52.0); Hemoglobin 8.5 g/dL (14.0-18.0); Mean Corpuscular HGB CONC 32.6 g/dL (32.0-36.0); Mean Corpuscular Hemoglobin 31.1 pg (27.0-31.0); Mean Corpuscular Volume 95.6 fl (78.0-98.0); Mean Platelet Volume 10.7 fL (7.4-10.4); Platelet Count 199 10x3/uL (130-400); RBC Distribution Width 13.7 % (11.5-14.5); Red Blood Cell (RBC) Count 2.73 mill/uL (4.70-6.10); White Blood Cell (WBC) Count 4.9 10x3/uL (4.8-10.8)
[2023-12-05 05:09] LABS: Anion Gap 14 mmol/L (10-20); BUN (Urea Nitrogen) 81 mg/dL (8.4-25.7); Calc. Creatinine Clearance 19 mL/min (70-130); Calcium 8.6 mg/dL (7.8-10.44); Carbon Dioxide 23 mmol/L (23-31); Chloride 107 mmol/L (98-107); Estimated GFR 13; Glucose 153 mg/dL (83-110); Potassium 3.9 mmol/L (3.5-5.1); Sodium 140 mmol/L (136-145)
[2023-12-05] MEDS: EPOETIN ALFA-EPBX (ESRD) 10,000 UNITS/ML VIAL SC SCH (09:58)
[2023-12-05 15:30] VITALS: BP 171/72; TEMP 98.6
[2023-12-06] MEDS ORDERED: Ferrous Sulfate 325 MG TAB PO SCH (08:00)
== END 2023-12-05 18:45 | disposition home or self-care (01) | DRG 281 ==
LOC: ERS 16:19 → 2NO 21:25
PROVIDERS: ADMIT Internal Medicine; ATTEND Internal Medicine
DX: I48.3 Typical atrial flutter (principal); I21.A1 Myocardial infarction type 2; E87.1 Hypo-osmolality and hyponatremia; E87.20 Acidosis, unspecified; N17.9 Acute kidney failure, unspecified; I50.22 Chronic systolic (congestive) heart failure; I25.10 Atherosclerotic heart disease of native coronary artery without angina pectoris; E11.22 Type 2 diabetes mellitus with diabetic chronic kidney disease; G47.33 Obstructive sleep apnea (adult) (pediatric); N40.0 Benign prostatic hyperplasia without lower urinary tract symptoms; N18.31 Chronic kidney disease, stage 3a; E87.5 Hyperkalemia; E87.6 Hypokalemia; I25.5 Ischemic cardiomyopathy; I48.0 Paroxysmal atrial fibrillation; E78.1 Pure hyperglyceridemia; Z95.818 Presence of other cardiac implants and grafts; Z95.0 Presence of cardiac pacemaker; Z79.82 Long term (current) use of aspirin; Z79.4 Long term (current) use of insulin; Z79.899 Other long term (current) drug therapy; Z87.891 Personal history of nicotine dependence; I25.2 Old myocardial infarction; Z85.038 Personal history of other malignant neoplasm of large intestine
CPT/HCPCS: 36415; 36416; 71045; 76770; 80048; 80053; 81001; 82805; 83036; 83605; 83735; 83880; 83935; 84300; 84443; 84484; 85025; 85610; 85730; 92960; 93005; 96361; 96365; 96375; A4217; J0282; J0613; J1160; J1644; J1815; J1940; J3490; J7050; J7070; P9047; Q5105

== ENCOUNTER 2023-12-08 10:27 | Observation (INO) | payer MEDICARE ==
[2023-12-08] MEDS ORDERED: Dextrose 50% Abboject 50 ML SYRINGE ONE (13:49)
[2023-12-08] MEDS ORDERED: Metoprolol Tartrate 5 MG (5 mL) VIAL ONE (17:22)
[2023-12-08] MEDS ORDERED: Amiodarone 200 MG TAB ONE (17:27)
[2023-12-08 20:27] LABS: #Monocytes 0.1 thou/uL (0.11-0.59); #Neutrophils 7.6 thou/uL (1.40-6.50); %Basophils 0.2 % (0.0-1.0); %Eosinophils 0.2 % (0.0-10.0); %Lymphocytes 5.2 % (21.0-51.0); %Monocytes 1.2 % (0.0-10.0); %Neutrophils 89.2 % (42.0-75.0); Hematocrit 31.1 % (42.0-52.0); Hemoglobin 9.9 g/dL (14.0-18.0); Mean Corpuscular HGB CONC 31.8 g/dL (32.0-36.0); Mean Corpuscular Hemoglobin 31.8 pg (27.0-31.0); Mean Platelet Volume 10.3 fL (7.4-10.4); Platelet Count 258 10x3/uL (130-400); RBC Distribution Width 14.1 % (11.5-14.5); Red Blood Cell (RBC) Count 3.11 mill/uL (4.70-6.10); White Blood Cell (WBC) Count 8.5 10x3/uL (4.8-10.8)
[2023-12-08 20:45] LABS: Anion Gap 17 mmol/L (10-20); BUN (Urea Nitrogen) 69 mg/dL (8.4-25.7); Calc. Creatinine Clearance 24 mL/min (70-130); Calcium 8.6 mg/dL (7.8-10.44); Carbon Dioxide 17 mmol/L (23-31); Chloride 111 mmol/L (98-107); Estimated GFR 16; Glucose 286 mg/dL (83-110); Magnesium 1.7 mg/dL (1.6-2.6); Potassium 4.8 mmol/L (3.5-5.1); Sodium 140 mmol/L (136-145)
[2023-12-08 21:06] VITALS: BMI 27.8
[2023-12-08] MEDS ORDERED: Dextrose 5% in Water 1,000 ML IV PRN (21:43)
[2023-12-08] MEDS ORDERED: Glucagon 1 MG/ML KIT IM PRN (21:43)
[2023-12-08] MEDS ORDERED: Dextrose 50% Abboject 50 ML SYRINGE SLOW IVP PRN (21:43)
[2023-12-08] MEDS: HumaLOG 300 UNITS/3 ML VIAL SC PRN (22:07)
[2023-12-09] MEDS: Insulin Glargine 30 UNITS/0.3 ML VIAL SC SCH ×2 (00:05→08:46)
[2023-12-09 05:39] LABS: #Monocytes 0.2 thou/uL (0.11-0.59); #Neutrophils 4.3 thou/uL (1.40-6.50); %Basophils 0.2 % (0.0-1.0); %Lymphocytes 7.1 % (21.0-51.0); %Monocytes 3.2 % (0.0-10.0); %Neutrophils 86.5 % (42.0-75.0); Hematocrit 28.8 % (42.0-52.0); Mean Corpuscular HGB CONC 31.3 g/dL (32.0-36.0); Mean Corpuscular Volume 99.3 fl (78.0-98.0); Mean Platelet Volume 10.7 fL (7.4-10.4); Platelet Count 241 10x3/uL (130-400); RBC Distribution Width 14.1 % (11.5-14.5)
[2023-12-09 06:18] LABS: Anion Gap 15 mmol/L (10-20); BUN (Urea Nitrogen) 76 mg/dL (8.4-25.7); Calc. Creatinine Clearance 22 mL/min (70-130); Calcium 8.4 mg/dL (7.8-10.44); Carbon Dioxide 18 mmol/L (23-31); Chloride 111 mmol/L (98-107); Estimated GFR 16; Glucose 362 mg/dL (83-110); Potassium 4.9 mmol/L (3.5-5.1); Sodium 139 mmol/L (136-145)
[2023-12-09] MEDS: HumaLOG 300 UNITS/3 ML VIAL SC PRN (06:25)
[2023-12-09] MEDS: Enoxaparin 30 MG (0.3 mL) SYRINGE SC SCH (08:45)
[2023-12-09] MEDS: Pregabalin 50 MG CAP PO SCH (08:47)
[2023-12-09] MEDS: Tamsulosin HCl 0.4 MG CAP PO SCH (08:47)
[2023-12-09] MEDS: Aspirin 81 mg Enteric Coated Tablet PO SCH (08:48)
[2023-12-09] MEDS: Acetaminophen 325 MG TAB PO SCH (08:48)
[2023-12-09] MEDS: Multivitamin W/ Minerals 1 TAB PO SCH (08:48)
[2023-12-09] MEDS: Carvedilol 25 MG TAB PO SCH (08:49)
[2023-12-09] MEDS: Torsemide 10 MG TAB PO SCH (08:49)
[2023-12-09] MEDS: Calcitriol 0.25 MCG CAP PO SCH (08:49)
[2023-12-09] MEDS: Amiodarone 200 MG TAB PO SCH (08:50)
[2023-12-09] MEDS: Ferrous Sulfate 325 MG TAB PO SCH (08:50)
[2023-12-09 11:40] VITALS: TEMP 98.1
[2023-12-09 12:15] VITALS: BP 172/79
[2023-12-09] MEDS ORDERED: Zolpidem Tartrate 5 MG TAB PO SCH (21:00)
== END 2023-12-09 12:20 | disposition home or self-care (01) ==
LOC: SDC 10:27 → 2SW 19:50
PROVIDERS: ADMIT Hospitalist; ATTEND Physician Assistant
PROC: 4A027FZ Measurement of Cardiac Rhythm, Via Natural or Artificial Opening (ICD-10-PCS; principal; 2023-12-08)
PROC: B246ZZ4 Ultrasonography of Right and Left Heart, Transesophageal (ICD-10-PCS; 2023-12-08)
DX: I48.3 Typical atrial flutter (principal); E11.22 Type 2 diabetes mellitus with diabetic chronic kidney disease; I13.0 Hypertensive heart and chronic kidney disease with heart failure and stage 1 through stage 4 chronic kidney disease, or unspecified chronic kidney disease; I50.9 Heart failure, unspecified; N18.9 Chronic kidney disease, unspecified; N17.9 Acute kidney failure, unspecified; E87.70 Fluid overload, unspecified; G47.30 Sleep apnea, unspecified; E78.5 Hyperlipidemia, unspecified; Z79.4 Long term (current) use of insulin; Z79.82 Long term (current) use of aspirin; Z79.899 Other long term (current) drug therapy; Z95.810 Presence of automatic (implantable) cardiac defibrillator; Z89.522 Acquired absence of left knee
CPT/HCPCS: 80048 ×2; 82962; 83735; 85025 ×2; 93005; 93312; 93653; 94660; C1731; C1760; C1894 ×6; C2630; 36415; 36416; 93010; J1650; J1815; J7999

== ENCOUNTER 2023-12-24 23:52 | Inpatient (IN) | payer MEDICARE ==
[2023-12-25 00:38] LABS: #Eosinphils 0.1 thou/uL (0.0-0.7); #Monocytes 0.6 thou/uL (0.11-0.59); #Neutrophils 5.4 thou/uL (1.40-6.50); %Basophils 0.1 % (0.0-1.0); %Eosinophils 1.6 % (0.0-10.0); %Lymphocytes 9.5 % (21.0-51.0); %Monocytes 8.2 % (0.0-10.0); %Neutrophils 79.7 % (42.0-75.0); Hematocrit 25.3 % (42.0-52.0); Hemoglobin 8.3 g/dL (14.0-18.0); Mean Corpuscular HGB CONC 32.8 g/dL (32.0-36.0); Mean Corpuscular Volume 94.4 fl (78.0-98.0); Mean Platelet Volume 11.3 fL (7.4-10.4); Platelet Count 160 10x3/uL (130-400); RBC Distribution Width 13.9 % (11.5-14.5); Red Blood Cell (RBC) Count 2.68 mill/uL (4.70-6.10); White Blood Cell (WBC) Count 6.7 10x3/uL (4.8-10.8)
[2023-12-25 00:54] LABS: INR-International Normal Ratio 1.1; PTT 39.5 sec (22.9-36.1); Prothrombin Time 14.6 sec (12.0-14.7)
[2023-12-25 01:01] LABS: ALT (SGPT) 36 U/L (8-55); AST (SGOT) 24 U/L (5-34); Albumin 3.7 g/dL (3.4-4.8); Alkaline Phosphatase 85 U/L (40-110); Anion Gap 14 mmol/L (10-20); BUN (Urea Nitrogen) 67 mg/dL (8.4-25.7); Bilirubin, Total 0.5 mg/dL (0.2-1.2); Calc. Creatinine Clearance 0 mL/min (70-130); Calcium 8.2 mg/dL (7.8-10.44); Carbon Dioxide 20 mmol/L (23-31); Chloride 107 mmol/L (98-107); Estimated GFR 20; Globulin 2.6 g/dL (2.4-3.5); Glucose 103 mg/dL (83-110); Lipase 45 U/L (8-78); Magnesium 1.6 mg/dL (1.6-2.6); Potassium 3.7 mmol/L (3.5-5.1); Protein, Total 6.3 g/dL (5.8-8.1); Sodium 137 mmol/L (136-145)
[2023-12-25 01:02] LABS: D-Dimer Test 6.92 mcg/mL (0.27-0.43)
[2023-12-25 01:05] LABS: Troponin I 0.067 ng/mL (< 0.028)
[2023-12-25] MEDS ORDERED: Furosemide 40 MG (4 mL) VIAL ONE (01:30)
[2023-12-25] MEDS ORDERED: Ondansetron ODT 4 MG TAB PO PRN (01:49)
[2023-12-25] MEDS ORDERED: Ondansetron PF 4 MG/2 ML Vial IVP PRN (01:49)
[2023-12-25] MEDS ORDERED: Acetaminophen 650 MG Suppository PR PRN (01:49)
[2023-12-25] MEDS ORDERED: Acetaminophen 325 MG TAB PO PRN (01:49)
[2023-12-25] MEDS ORDERED: Enoxaparin 80 MG (0.8 mL) SYRINGE ONE (02:10)
[2023-12-25] MEDS ORDERED: Ipratropium/Albuterol 3 ML NEB NEB PRN (02:29)
[2023-12-25 04:11] VITALS: BMI 27.5
[2023-12-25] MEDS: Furosemide 40 MG (4 mL) VIAL SLOW IVP SCH (05:10)
[2023-12-25 05:14] LABS: Actual Bicarbonate (HCO3v) 19.3 mEq/L (22-28); Base Excess -5.9 mEq/L (-2.0 to +3.0); Calcium, Ionized (venous) 1.04 mmol/L (1.16-1.32); Chloride (VBG) 105 mmol/L (98-106); Hematocrit-VBG 28 % (42.0-52.0); Hemoglobin (Hb) 9.5 g/dL (12.6-17.4); Sodium 137 mmol/L (133-146); pH (venous) 7.339 (7.32-7.43)
[2023-12-25 05:39] LABS: Iron 13 ug/dL (65-175); Iron 14 ug/dL (65-175); Iron Binding Capacity, Total 193 mcg/dL (261-462); Iron Binding Capacity, Total 195 mcg/dL (261-462)
[2023-12-25 05:40] LABS: Troponin I 0.085 ng/mL (< 0.028)
[2023-12-25 06:04] LABS: Ferritin 1079.61 ng/mL (22-322)
[2023-12-25] MEDS: Ipratropium/Albuterol 3 ML NEB NEB SCH (07:01)
[2023-12-25 07:18] LABS: #Eosinphils 0.1 thou/uL (0.0-0.7); #Monocytes 0.5 thou/uL (0.11-0.59); #Neutrophils 3.9 thou/uL (1.40-6.50); %Basophils 0.4 % (0.0-1.0); %Eosinophils 2.4 % (0.0-10.0); %Lymphocytes 16.5 % (21.0-51.0); %Monocytes 9.6 % (0.0-10.0); %Neutrophils 70.2 % (42.0-75.0); Hematocrit 27.5 % (42.0-52.0); Hemoglobin 8.8 g/dL (14.0-18.0); Mean Corpuscular Hemoglobin 30.6 pg (27.0-31.0); Mean Corpuscular Volume 95.5 fl (78.0-98.0); Mean Platelet Volume 11.8 fL (7.4-10.4); Platelet Count 159 10x3/uL (130-400); Red Blood Cell (RBC) Count 2.88 mill/uL (4.70-6.10); White Blood Cell (WBC) Count 5.5 10x3/uL (4.8-10.8)
[2023-12-25 07:56] LABS: Troponin I 0.078 ng/mL (< 0.028)
[2023-12-25] MEDS: Amiodarone 200 MG TAB PO SCH (09:12)
[2023-12-25] MEDS: Ferrous Sulfate 325 MG TAB PO SCH (09:12)
[2023-12-25] MEDS: Famotidine 20 MG TAB PO SCH (09:12)
[2023-12-25] MEDS: Aspirin 81 mg Enteric Coated Tablet PO SCH (09:12)
[2023-12-25 11:33] LABS: Bacteria/HPF None Seen HPF (None Seen); Bilirubin Negative (Negative); Blood, Urine Negative (Negative); CAUTI Indications for Culture Dysuria,urgency,freq; Clarity Clear (Clear); Glucose, Urine (Dipstick) Normal (Negative); Ketone, Urine Negative (Negative); Leukocyte Negative Leu/uL (Negative); Nitrite Negative (Negative); Protein, Urine (Dipstick) Negative (Neg-Trace); RBC/HPF 0-3 HPF (0-3); Specific Gravity, Urine 1.006 (1.002-1.036); Squamous Epithelial 0-3 HPF (0-3); Urobilinogen Normal mg/dL (Less than 2); WBC/HPF 0-3 HPF (0-3)
[2023-12-25 11:34] LABS: Urine Culture Reflex No No
[2023-12-25] MEDS: Potassium Chloride 20 MEQ TAB PO SCH (13:12)
[2023-12-25] MEDS ORDERED: Dextrose 50% Abboject 50 ML SYRINGE SLOW IVP PRN (13:45)
[2023-12-25] MEDS ORDERED: Dextrose 5% in Water 1,000 ML IV PRN (13:45)
[2023-12-25] MEDS ORDERED: Glucagon 1 MG/ML KIT IM PRN (13:45)
[2023-12-25] MEDS: Carvedilol 6.25 MG TAB PO SCH (16:05)
[2023-12-25] MEDS: HumaLOG 300 UNITS/3 ML VIAL SC PRN (21:34)
[2023-12-25] MEDS: Insulin Glargine 30 UNITS/0.3 ML VIAL SC SCH (21:34)
[2023-12-26 05:50] LABS: Anion Gap 15 mmol/L (10-20); BUN (Urea Nitrogen) 56 mg/dL (8.4-25.7); Calc. Creatinine Clearance 25 mL/min (70-130); Calcium 8.9 mg/dL (7.8-10.44); Carbon Dioxide 24 mmol/L (23-31); Chloride 108 mmol/L (98-107); Estimated GFR 19; Glucose 138 mg/dL (83-110); Potassium 3.6 mmol/L (3.5-5.1); Sodium 143 mmol/L (136-145)
[2023-12-26] MEDS: NIFEdipine XL 30 MG ER.TAB PO SCH (08:57)
[2023-12-26] MEDS: Potassium Chloride 20 MEQ TAB PO SCH (10:17)
[2023-12-26] MEDS: Pregabalin 50 MG CAP PO SCH (14:05)
[2023-12-26] MEDS: Carvedilol 6.25 MG TAB PO SCH (17:18)
[2023-12-26] MEDS ORDERED: Zolpidem Tartrate 5 MG TAB PO SCH (21:00)
[2023-12-26] MEDS: Zolpidem Tartrate 5 MG TAB PO PRN (21:49)
[2023-12-27 07:18] LABS: #Eosinphils 0.2 thou/uL (0.0-0.7); #Monocytes 0.5 thou/uL (0.11-0.59); #Neutrophils 2.9 thou/uL (1.40-6.50); %Basophils 0.7 % (0.0-1.0); %Eosinophils 3.5 % (0.0-10.0); %Lymphocytes 20.3 % (21.0-51.0); %Monocytes 10.9 % (0.0-10.0); %Neutrophils 62.6 % (42.0-75.0); Hematocrit 29.6 % (42.0-52.0); Hemoglobin 9.4 g/dL (14.0-18.0); Mean Corpuscular HGB CONC 31.8 g/dL (32.0-36.0); Mean Corpuscular Hemoglobin 29.7 pg (27.0-31.0); Mean Corpuscular Volume 93.4 fl (78.0-98.0); Mean Platelet Volume 11.4 fL (7.4-10.4); Platelet Count 166 10x3/uL (130-400); RBC Distribution Width 14.1 % (11.5-14.5); Red Blood Cell (RBC) Count 3.17 mill/uL (4.70-6.10); White Blood Cell (WBC) Count 4.6 10x3/uL (4.8-10.8)
[2023-12-27 07:44] LABS: ALT (SGPT) 32 U/L (8-55); AST (SGOT) 21 U/L (5-34); Albumin 3.9 g/dL (3.4-4.8); Alkaline Phosphatase 84 U/L (40-110); Anion Gap 17 mmol/L (10-20); BUN (Urea Nitrogen) 58 mg/dL (8.4-25.7); Bilirubin, Total 0.5 mg/dL (0.2-1.2); Calc. Creatinine Clearance 25 mL/min (70-130); Carbon Dioxide 21 mmol/L (23-31); Chloride 108 mmol/L (98-107); Estimated GFR 21; Globulin 2.8 g/dL (2.4-3.5); Glucose 131 mg/dL (83-110); Potassium 3.6 mmol/L (3.5-5.1); Protein, Total 6.7 g/dL (5.8-8.1); Sodium 142 mmol/L (136-145)
[2023-12-27 11:17] VITALS: BP 121/62; TEMP 97.7
[2023-12-27] MEDS: Torsemide 20 MG TAB PO SCH (13:07)
== END 2023-12-27 14:22 | disposition home or self-care (01) | DRG 291 ==
LOC: ERS 23:52 → 2NO 12-25 01:55
PROVIDERS: ADMIT Student in an Organized Health Care Education/Training Program; ATTEND Internal Medicine
DX: I13.0 Hypertensive heart and chronic kidney disease with heart failure and stage 1 through stage 4 chronic kidney disease, or unspecified chronic kidney disease (principal); I50.33 Acute on chronic diastolic (congestive) heart failure; J96.21 Acute and chronic respiratory failure with hypoxia; N17.9 Acute kidney failure, unspecified; N18.4 Chronic kidney disease, stage 4 (severe); I48.19 Other persistent atrial fibrillation; Z79.899 Other long term (current) drug therapy; Z79.82 Long term (current) use of aspirin; E78.5 Hyperlipidemia, unspecified; I25.2 Old myocardial infarction; Z98.49 Cataract extraction status, unspecified eye; F17.220 Nicotine dependence, chewing tobacco, uncomplicated; E11.22 Type 2 diabetes mellitus with diabetic chronic kidney disease; N40.0 Benign prostatic hyperplasia without lower urinary tract symptoms; G47.33 Obstructive sleep apnea (adult) (pediatric); Z79.4 Long term (current) use of insulin; Z98.890 Other specified postprocedural states; D63.1 Anemia in chronic kidney disease
CPT/HCPCS: 36415; 36416; 71045; 78451; 80048; 80053; 81001; 82607; 82728; 82805; 83540; 83550; 83605; 83690; 83735; 83880; 84443; 84484; 85025; 85379; 85610; 85730; 93005; 96372; 96374; A9540; J1650; J1815; J1940

== ENCOUNTER 2024-08-16 16:09 | Outpatient (CLI) | payer MEDICARE | END 2024-08-16 16:10 | disposition home or self-care (01) | LOC: BICRAD 16:09 | PROVIDERS: ATTEND Nurse Practitioner Family | DX: I50.22 Chronic systolic (congestive) heart failure (principal); I51.7 Cardiomegaly | CPT/HCPCS: 36415; 71046; 83880 ==

== ENCOUNTER 2024-09-27 08:19 | Outpatient (CLI) | payer MEDICARE | END 2024-09-27 08:20 | disposition home or self-care (01) | LOC: SCSRAD 08:19 | PROVIDERS: ATTEND Nurse Practitioner Family | DX: I25.10 Atherosclerotic heart disease of native coronary artery without angina pectoris (principal) | CPT/HCPCS: 71046 ==

== ENCOUNTER 2025-09-11 09:28 | Outpatient (CLI) | payer MEDICARE | END 2025-09-11 09:29 | disposition home or self-care (01) | LOC: SCSULT 09:28 | PROVIDERS: ATTEND Urology | DX: N28.1 Cyst of kidney, acquired (principal); R93.421 Abnormal radiologic findings on diagnostic imaging of right kidney | CPT/HCPCS: 76770 ==